=== PATIENT | male | born 1975 | race Caucasian/White ===

== ENCOUNTER 2018-06-14 19:16 | Emergency (ER) | payer OTHER ==
[~2018-06-14] VITALS: Ht 157.5 cm; Wt 102.3 kg
[~2018-06-14 19:16] MED LIST: ASPI81 PO; ATOR40TA28 PO; CARB200T PO; CARB200T6 PO; DIVA-78 PO; LEVE250T55 PO; LEVE750T10 PO; LISI10TA7 PO; METF500T7 PO; MULT-1238 PO; MULT1TAB70 PO; QUET25TA PO; QUET300T2 PO; RISP3 PO; TOPI25 PO
[2018-06-14 19:21] VITALS: BP 155/90
[2018-06-14] MEDS ORDERED: METF-960 PO (19:29)
[2018-06-14] MEDS ORDERED: DIVA500T52 PO (19:29)
[2018-06-14] MEDS ORDERED: QUET300T2 PO (19:29)
[2018-06-14] MEDS ORDERED: OLAN7.5T2 PO (19:29)
[2018-06-14] MEDS ORDERED: CARB200T6 PO (19:29)
[2018-06-14] MEDS ORDERED: ATOR40TA28 PO (19:29)
[2018-06-14] MEDS ORDERED: IBUP-2071 PO (19:29)
[2018-06-14] MEDS ORDERED: CLON.5 PO (19:29)
[2018-06-14] MEDS ORDERED: LEVE500T53 PO (19:29)
[2018-06-14] MEDS ORDERED: OLAN10TA3 PO (19:29)
[2018-06-14] MEDS ORDERED: ASPI81 PO (19:29)
[2018-06-14 19:34] LABS: GLUCOSE,POINT OF CARE 244 MG/DL (70-110)
== END 2018-06-14 21:30 | disposition left against medical advice (07) ==
LOC: EMS 19:18
DX: E11.65 Type 2 diabetes mellitus with hyperglycemia (principal); Z53.21 Procedure and treatment not carried out due to patient leaving prior to being seen by health care provider

== ENCOUNTER 2019-05-23 11:50 | Inpatient (IN) | payer MEDICAID, OTHER ==
[~2019-05-23] VITALS: Ht 167.6 cm; Wt 77.5 kg
[~2019-05-23 11:50] MED LIST changes: +ASPI-728 PO; -ASPI81 PO; -CARB200T PO; +CLON.5 PO; -DIVA-78 PO; +DIVA500T52 PO; +IBUP-2071 PO; -LEVE250T55 PO; +LEVE500T53 PO; -LEVE750T10 PO; -LISI10TA7 PO; +METF-960 PO; -METF500T7 PO; -MULT-1238 PO; -MULT1TAB70 PO; +OLAN10TA3 PO; +OLAN7.5T2 PO; -QUET25TA PO; -RISP3 PO; -TOPI25 PO
[2019-05-23] MEDS ORDERED: CLON1TAB13 PO (12:37)
[2019-05-23] MEDS ORDERED: QUET300T2 PO (13:12)
[2019-05-23] MEDS ORDERED: LISI-661 PO (13:12)
[2019-05-23] MEDS ORDERED: METF-960 PO (13:12)
[2019-05-23] MEDS ORDERED: GLIP2.5ER PO (13:12)
[2019-05-23 13:58] LABS: AMPHET/METH SCREEN,URINE NEGATIVE (NEGATIVE); BARBITURATE SCREEN, URINE NEGATIVE (NEGATIVE); BENZODIAZEPINES SCREEN,URINE NEGATIVE (NEGATIVE); CANNABINOID SCREEN,URINE NEGATIVE (NEGATIVE); COCAINE SCREEN,URINE NEGATIVE (NEGATIVE); METHADONE SCREEN, URINE NEGATIVE (NEGATIVE); OPIATE SCREEN,URINE NEGATIVE (NEGATIVE)
[2019-05-23 14:02] LABS: PHENCYCLIDINE SCREEN,URINE NEGATIVE (NEGATIVE)
[2019-05-23 14:10] LABS: BASOPHILS % (AUTO) 0.4 % (0.0-2.0); EOSINOPHILS % (AUTO) 0.3 % (1.0-6.0); HEMATOCRIT 39.9 % (41-53); HEMOGLOBIN 13.7 g/dL (13.5-17.5); LYMPHOCYTES # (AUTO) 1.3 K/uL (1.0-4.8); LYMPHOCYTES % (AUTO) 15.9 % (22.0-44.0); MEAN CORPUSCULAR HEMOGLOBIN 30.3 pg (26.0-34.0); MEAN CORPUSCULAR HGB CONC 34.3 G/dL (31.0-37.0); MEAN CORPUSCULAR VOLUME 88 fL (80-100); MONOCYTES # (AUTO) 0.5 K/uL (0.1-1.0); MONOCYTES % (AUTO) 5.7 % (2.0-9.0); NEUTROPHILS # (AUTO) 6.5 K/uL (1.8-7.7); NEUTROPHILS % (AUTO) 77.7 % (40.0-70.0); PLATELET COUNT (AUTO) 269 K/uL (150-450); RED BLOOD CELL COUNT(AUTO) 4.51 MIL/uL (4.50-5.90); RED CELL DISTRIBUTION WIDTH 13.7 % (11.5-14.5)
[2019-05-23 14:24] LABS: ANION GAP 12 mmol/L (8-16); CALCIUM, TOTAL 8.9 mg/dL (8.8-10.5); CARBON DIOXIDE 25 mmol/L (22-29); CHLORIDE 93 mmol/L (98-107); CREATININE 0.63 mg/dL (0.60-1.30); GLOMERULAR FILTR. RATE CALC > 60 mL/min (>60); GLUCOSE,RANDOM 132 mg/dL (70-110); POTASSIUM 3.5 mmol/L (3.5-5.1); SODIUM SERUM 130 mmol/L (136-145); UREA NITROGEN, BLOOD 7 mg/dL (7-18)
[2019-05-23 14:30] LABS: ALANINE AMINOTRANSFERASE 38 U/L (12-78); ALKALINE PHOSPHATASE 97 U/L (46-116); ASPARTATE AMINOTRANSFERASE 18 U/L (15-37); BILIRUBIN,TOTAL 0.2 mg/dL (0.1-1.0); TOTAL PROTEIN, SERUM 7.5 g/dL (6.4-8.2)
[2019-05-23 15:05] LABS: CARBAMAZEPINE (TEGRETOL) 10.5 mcg/mL (4.0-12.0)
[2019-05-23] MEDS ORDERED: ZOLPIDEM TARTRATE 10 MG TABLET PO PRN (16:15)
[2019-05-23] MEDS: QUEtiapine FUMARATE 100 MG TABLET PO PRN (16:31)
[2019-05-23] MEDS: LORazepam 2 MG TABLET PO PRN (16:31)
[2019-05-23 16:44] LABS: GLUCOSE,POINT OF CARE 123 MG/DL (70-110)
[2019-05-23 17:45] VITALS: BP 149/80
[2019-05-23] MEDS ORDERED: MAG HYDROX/AL HYDROX/SIMETH ES 30 ML SUSPENSION UDCUP PO PRN (18:30)
[2019-05-23] MEDS ORDERED: ALBUTEROL SULFATE HFA 90 MCG/PUFF 8 GM INHALER IH PRN (18:30)
[2019-05-23] MEDS ORDERED: NICOTINE 14 MG/24 HOUR PATCH TD PRN (18:30)
[2019-05-23] MEDS ORDERED: PETROLATUM,WHITE 28 GM JELLY TP PRN (18:30)
[2019-05-23] MEDS ORDERED: DOCUSATE SODIUM 100 MG CAPSULE PO PRN (18:30)
[2019-05-23] MEDS ORDERED: GuaiFENesin/D-METHORPHAN [SUGAR-FREE] 200-20MG/10 ML SYRUP UDCUP PO PRN (18:30)
[2019-05-23] MEDS ORDERED: LOPERAMIDE HCL 2 MG CAPSULE PO PRN (18:30)
[2019-05-23] MEDS ORDERED: IBUPROFEN 400 MG TABLET PO PRN (18:30)
[2019-05-23] MEDS ORDERED: CloNIDine HCL 0.1 MG TABLET PO PRN (18:30)
[2019-05-23] MEDS ORDERED: ONDANSETRON HCL 4 MG TABLET PO PRN (18:30)
[2019-05-23] MEDS ORDERED: MAGNESIUM HYDROXIDE SUSPENSION 30 ML UDCUP PO PRN (18:30)
[2019-05-23] MEDS ORDERED: ACETAMINOPHEN 325 MG TABLET PO PRN (18:30)
[2019-05-23] MEDS ORDERED: PNEUMOCOCCAL VACCINE POLYVALENT 0.5 ML VIAL [PPSV23] IM ONE (19:00)
[2019-05-23] MEDS ORDERED: INFLUENZA VIRUS VACCINE QVS 2019-20 (3YR+)/PF 60 MCG/0.5 ML SYRINGE IM ONE (19:00)
[2019-05-23] MEDS: ClonazePAM 0.5 MG TABLET PO SCH (19:38)
[2019-05-23] MEDS: OLANZapine 10 MG TABLET PO SCH (20:39)
[2019-05-23] MEDS: LevETIRAcetam 500 MG TABLET PO SCH (20:39)
[2019-05-23] MEDS: QUEtiapine FUMARATE 200 MG TABLET PO SCH (20:40)
[2019-05-23] MEDS: CarBAMazepine 200 MG TABLET PO SCH (20:40)
[2019-05-24] MEDS: GlipiZIDE 5 MG TABLET PO SCH ×2 (06:41→16:37)
[2019-05-24] MEDS: MetFORMIN HCL 500 MG TABLET PO SCH ×2 (06:41→16:28)
[2019-05-24 07:57] LABS: BASOPHILS % (AUTO) 0.5 % (0.0-2.0); EOSINOPHILS % (AUTO) 0.9 % (1.0-6.0); HEMATOCRIT 39.7 % (41-53); HEMOGLOBIN 13.7 g/dL (13.5-17.5); LYMPHOCYTES # (AUTO) 1.4 K/uL (1.0-4.8); MEAN CORPUSCULAR HEMOGLOBIN 30.1 pg (26.0-34.0); MEAN CORPUSCULAR HGB CONC 34.4 G/dL (31.0-37.0); MEAN CORPUSCULAR VOLUME 88 fL (80-100); MONOCYTES # (AUTO) 0.3 K/uL (0.1-1.0); MONOCYTES % (AUTO) 5.2 % (2.0-9.0); NEUTROPHILS # (AUTO) 3.6 K/uL (1.8-7.7); NEUTROPHILS % (AUTO) 67.4 % (40.0-70.0); PLATELET COUNT (AUTO) 250 K/uL (150-450); RED BLOOD CELL COUNT(AUTO) 4.53 MIL/uL (4.50-5.90); RED CELL DISTRIBUTION WIDTH 13.7 % (11.5-14.5)
[2019-05-24 08:27] LABS: ALANINE AMINOTRANSFERASE 39 U/L (12-78); ALKALINE PHOSPHATASE 102 U/L (46-116); ANION GAP 10 mmol/L (8-16); ASPARTATE AMINOTRANSFERASE 18 U/L (15-37); BILIRUBIN,TOTAL 0.2 mg/dL (0.1-1.0); CARBON DIOXIDE 26 mmol/L (22-29); CHLORIDE 90 mmol/L (98-107); CHOL/HDL RATIO 2.8 (4.2-7.3); CHOLESTEROL 135 mg/dL (131-200); CREATININE 0.63 mg/dL (0.60-1.30); FREE T4 (FREE THYROXINE) 1.01 ng/dL (0.76-1.46); GLOMERULAR FILTR. RATE CALC > 60 mL/min (>60); GLUCOSE,RANDOM 160 mg/dL (70-110); HDL CHOLESTEROL 49 mg/dL (40-60); LDL CHOL (CALC.) 62 mg/dL (0-130); POTASSIUM 3.7 mmol/L (3.5-5.1); SODIUM SERUM 126 mmol/L (136-145); THYROID STIMULATING HORMONE 1.61 uIU/mL (0.36-3.74); TOTAL PROTEIN, SERUM 7.6 g/dL (6.4-8.2); TRIGLYCERIDES 121 mg/dL (15-150); UREA NITROGEN, BLOOD 4 mg/dL (7-18)
[2019-05-24] MEDS: ATORVASTATIN CALCIUM 40 MG TABLET PO SCH (08:36)
[2019-05-24] MEDS: LevETIRAcetam 500 MG TABLET PO SCH ×2 (08:36→16:28)
[2019-05-24] MEDS: ClonazePAM 0.5 MG TABLET PO SCH ×2 (08:36→16:28)
[2019-05-24] MEDS: ASPIRIN 81 MG CHEWABLE TABLET PO SCH (08:37)
[2019-05-24] MEDS: CarBAMazepine 200 MG TABLET PO SCH ×2 (08:37→16:28)
[2019-05-24] MEDS: LISINOPRIL 10 MG TABLET PO SCH (08:37)
[2019-05-24 08:59] LABS: CARBAMAZEPINE (TEGRETOL) 10.1 mcg/mL (4.0-12.0)
[2019-05-24 13:37] VITALS: BP 116/74
[2019-05-24 16:26] VITALS: BP 123/76
[2019-05-24] MEDS: SODIUM CHLORIDE 1 GM TABLET PO SCH (17:26)
[2019-05-24] MEDS ORDERED: PETROLATUM,WHITE 28 GM JELLY TP PRN (19:45)
[2019-05-24] MEDS ORDERED: ONDANSETRON HCL 4 MG TABLET PO PRN (19:45)
[2019-05-24] MEDS ORDERED: LOPERAMIDE HCL 2 MG CAPSULE PO PRN (19:45)
[2019-05-24] MEDS ORDERED: DOCUSATE SODIUM 100 MG CAPSULE PO PRN (19:45)
[2019-05-24] MEDS ORDERED: GuaiFENesin/D-METHORPHAN [SUGAR-FREE] 200-20MG/10 ML SYRUP UDCUP PO PRN (19:45)
[2019-05-24] MEDS ORDERED: NICOTINE 14 MG/24 HOUR PATCH TD PRN (19:45)
[2019-05-24] MEDS ORDERED: MAGNESIUM HYDROXIDE SUSPENSION 30 ML UDCUP PO PRN (19:45)
[2019-05-24] MEDS ORDERED: CloNIDine HCL 0.1 MG TABLET PO PRN (19:45)
[2019-05-24] MEDS ORDERED: MAG HYDROX/AL HYDROX/SIMETH ES 30 ML SUSPENSION UDCUP PO PRN (19:45)
[2019-05-24] MEDS ORDERED: IBUPROFEN 400 MG TABLET PO PRN (19:45)
[2019-05-24] MEDS ORDERED: ALBUTEROL SULFATE HFA 90 MCG/PUFF 8 GM INHALER IH PRN (19:45)
[2019-05-24] MEDS: OLANZapine 10 MG TABLET PO SCH (20:11)
[2019-05-24] MEDS: QUEtiapine FUMARATE 200 MG TABLET PO SCH (20:11)
[2019-05-25 06:17] LABS: GLUCOMETER DEV NAME(LOC) 3E.C; GLUCOSE,POINT OF CARE 99 MG/DL (70-110)
[2019-05-25] MEDS: GlipiZIDE 5 MG TABLET PO SCH ×2 (06:36→16:31)
[2019-05-25] MEDS: MetFORMIN HCL 500 MG TABLET PO SCH ×2 (06:37→17:26)
[2019-05-25 09:09] VITALS: BP 146/74
[2019-05-25] MEDS: SODIUM CHLORIDE 1 GM TABLET PO SCH ×3 (09:40→15:55)
[2019-05-25] MEDS: ASPIRIN 81 MG CHEWABLE TABLET PO SCH (09:50)
[2019-05-25] MEDS: LevETIRAcetam 500 MG TABLET PO SCH ×2 (09:50→15:55)
[2019-05-25] MEDS: ClonazePAM 0.5 MG TABLET PO SCH ×2 (09:51→16:32)
[2019-05-25] MEDS: ATORVASTATIN CALCIUM 40 MG TABLET PO SCH (09:51)
[2019-05-25] MEDS: CarBAMazepine 200 MG TABLET PO SCH ×2 (09:51→15:55)
[2019-05-25] MEDS: LISINOPRIL 10 MG TABLET PO SCH (09:52)
[2019-05-25 16:35] VITALS: BP 158/99
[2019-05-25] MEDS: OLANZapine 10 MG TABLET PO SCH (20:10)
[2019-05-25] MEDS: QUEtiapine FUMARATE 200 MG TABLET PO SCH (20:14)
[2019-05-26 05:56] LABS: GLUCOMETER DEV NAME(LOC) 3E.C; GLUCOSE,POINT OF CARE 88 MG/DL (70-110)
[2019-05-26] MEDS: MetFORMIN HCL 500 MG TABLET PO SCH ×2 (06:41→16:28)
[2019-05-26] MEDS: GlipiZIDE 5 MG TABLET PO SCH ×2 (06:41→16:28)
[2019-05-26] MEDS: ClonazePAM 0.5 MG TABLET PO SCH ×2 (08:40→16:29)
[2019-05-26] MEDS: CarBAMazepine 200 MG TABLET PO SCH ×2 (08:40→16:28)
[2019-05-26] MEDS: ATORVASTATIN CALCIUM 40 MG TABLET PO SCH (08:41)
[2019-05-26] MEDS: SODIUM CHLORIDE 1 GM TABLET PO SCH ×3 (08:41→16:29)
[2019-05-26] MEDS: ASPIRIN 81 MG CHEWABLE TABLET PO SCH (08:41)
[2019-05-26] MEDS: LevETIRAcetam 500 MG TABLET PO SCH ×2 (08:41→16:29)
[2019-05-26] MEDS: LISINOPRIL 10 MG TABLET PO SCH (08:41)
[2019-05-26 08:42] LABS: ANION GAP 9 mmol/L (8-16); CARBON DIOXIDE 28 mmol/L (22-29); CHLORIDE 92 mmol/L (98-107); CREATININE 0.57 mg/dL (0.60-1.30); GLOMERULAR FILTR. RATE CALC > 60 mL/min (>60); GLUCOSE,RANDOM 87 mg/dL (70-110); SODIUM SERUM 129 mmol/L (136-145); UREA NITROGEN, BLOOD 6 mg/dL (7-18)
[2019-05-26 09:33] VITALS: BP 114/74
[2019-05-26 16:14] VITALS: BP 114/81
[2019-05-26] MEDS: QUEtiapine FUMARATE 200 MG TABLET PO SCH (20:22)
[2019-05-26] MEDS: OLANZapine 10 MG TABLET PO SCH (20:22)
[2019-05-27] MEDS: GlipiZIDE 5 MG TABLET PO SCH ×2 (06:40→16:14)
[2019-05-27] MEDS: MetFORMIN HCL 500 MG TABLET PO SCH ×2 (06:40→16:14)
[2019-05-27 06:46] LABS: GLUCOMETER DEV NAME(LOC) 3E.C; GLUCOSE,POINT OF CARE 92 MG/DL (70-110)
[2019-05-27 08:16] VITALS: BP 140/81
[2019-05-27] MEDS: SODIUM CHLORIDE 1 GM TABLET PO SCH ×3 (08:24→16:15)
[2019-05-27] MEDS: ASPIRIN 81 MG CHEWABLE TABLET PO SCH (08:24)
[2019-05-27] MEDS: ATORVASTATIN CALCIUM 40 MG TABLET PO SCH (08:24)
[2019-05-27] MEDS: CarBAMazepine 200 MG TABLET PO SCH ×2 (08:24→16:15)
[2019-05-27] MEDS: LISINOPRIL 10 MG TABLET PO SCH (08:24)
[2019-05-27] MEDS: LevETIRAcetam 500 MG TABLET PO SCH ×2 (08:24→16:14)
[2019-05-27] MEDS: ClonazePAM 0.5 MG TABLET PO SCH ×2 (08:24→16:15)
[2019-05-27 16:13] VITALS: BP 132/92
[2019-05-27] MEDS: OLANZapine 10 MG TABLET PO SCH (20:12)
[2019-05-27] MEDS: QUEtiapine FUMARATE 200 MG TABLET PO SCH (20:12)
[2019-05-28 06:00] LABS: GLUCOMETER DEV NAME(LOC) 3E.I 2; GLUCOSE,POINT OF CARE 116 MG/DL (70-110)
[2019-05-28] MEDS: MetFORMIN HCL 500 MG TABLET PO SCH ×2 (06:40→16:34)
[2019-05-28] MEDS: GlipiZIDE 5 MG TABLET PO SCH ×2 (06:40→16:07)
[2019-05-28 08:54] LABS: ANION GAP 12 mmol/L (8-16); CALCIUM, TOTAL 9.1 mg/dL (8.8-10.5); CARBON DIOXIDE 22 mmol/L (22-29); CHLORIDE 87 mmol/L (98-107); CREATININE 0.67 mg/dL (0.60-1.30); GLOMERULAR FILTR. RATE CALC > 60 mL/min (>60); GLUCOSE,RANDOM 143 mg/dL (70-110); POTASSIUM 4.1 mmol/L (3.5-5.1); UREA NITROGEN, BLOOD 9 mg/dL (7-18)
[2019-05-28 08:55] LABS: SODIUM SERUM 121 mmol/L (136-145)
[2019-05-28] MEDS: CarBAMazepine 200 MG TABLET PO SCH ×2 (08:56→16:06)
[2019-05-28] MEDS: ATORVASTATIN CALCIUM 40 MG TABLET PO SCH (08:56)
[2019-05-28] MEDS: SODIUM CHLORIDE 1 GM TABLET PO SCH ×3 (08:56→16:07)
[2019-05-28] MEDS: ASPIRIN 81 MG CHEWABLE TABLET PO SCH (08:57)
[2019-05-28] MEDS: ClonazePAM 0.5 MG TABLET PO SCH ×2 (08:57→16:06)
[2019-05-28] MEDS: LevETIRAcetam 500 MG TABLET PO SCH ×2 (08:58→16:06)
[2019-05-28] MEDS: LISINOPRIL 10 MG TABLET PO SCH (09:14)
[2019-05-28] MEDS ORDERED: SODIUM CHLORIDE 1 GM TABLET PO ONE (09:15)
[2019-05-28 10:00] VITALS: BP 136/94
[2019-05-28] MEDS: LORazepam 2 MG TABLET PO PRN (15:54)
[2019-05-28] MEDS ORDERED: GuaiFENesin/D-METHORPHAN [SUGAR-FREE] 200-20MG/10 ML SYRUP UDCUP PO PRN (16:00)
[2019-05-28] MEDS ORDERED: HydrOXYzine PAMOATE 50 MG CAPSULE PO PRN (16:00)
[2019-05-28] MEDS: THIAMINE HCL 100 MG TABLET PO SCH (16:08)
[2019-05-28 16:32] VITALS: BP 124/90
[2019-05-28] MEDS: QUEtiapine FUMARATE 200 MG TABLET PO SCH (20:47)
[2019-05-29 03:48] VITALS: BP 140/84
[2019-05-29 05:32] LABS: GLUCOMETER DEV NAME(LOC) 3E.I 2; GLUCOSE,POINT OF CARE 99 MG/DL (70-110)
[2019-05-29] MEDS: LORazepam 2 MG TABLET PO PRN (06:17)
[2019-05-29] MEDS: MetFORMIN HCL 500 MG TABLET PO SCH ×2 (06:17→16:11)
[2019-05-29] MEDS: GlipiZIDE 5 MG TABLET PO SCH ×2 (06:17→16:11)
[2019-05-29 08:25] VITALS: BP 127/82
[2019-05-29] MEDS: FOLIC ACID 1 MG TABLET PO SCH (08:50)
[2019-05-29] MEDS: CarBAMazepine 200 MG TABLET PO SCH ×2 (08:50→16:11)
[2019-05-29] MEDS: LevETIRAcetam 500 MG TABLET PO SCH ×2 (08:50→16:12)
[2019-05-29] MEDS: SODIUM CHLORIDE 1 GM TABLET PO SCH ×3 (08:50→16:11)
[2019-05-29] MEDS: LISINOPRIL 10 MG TABLET PO SCH (08:50)
[2019-05-29] MEDS: ClonazePAM 0.5 MG TABLET PO SCH ×2 (08:50→16:11)
[2019-05-29] MEDS: ATORVASTATIN CALCIUM 40 MG TABLET PO SCH (08:50)
[2019-05-29] MEDS: ASPIRIN 81 MG CHEWABLE TABLET PO SCH (08:50)
[2019-05-29] MEDS: THIAMINE HCL 100 MG TABLET PO SCH ×2 (08:52→16:11)
[2019-05-29] MEDS: MULTIVITAMINS WITH MINERALS, THERAPEUTIC TABLET PO SCH (08:52)
[2019-05-29 15:24] LABS: ANION GAP 10 mmol/L (8-16); CALCIUM, TOTAL 8.9 mg/dL (8.8-10.5); CARBON DIOXIDE 28 mmol/L (22-29); CHLORIDE 91 mmol/L (98-107); CREATININE 0.56 mg/dL (0.60-1.30); GLOMERULAR FILTR. RATE CALC > 60 mL/min (>60); GLUCOSE,RANDOM 85 mg/dL (70-110); POTASSIUM 3.9 mmol/L (3.5-5.1); SODIUM SERUM 129 mmol/L (136-145); UREA NITROGEN, BLOOD 6 mg/dL (7-18)
[2019-05-29 16:33] VITALS: BP 145/83
[2019-05-29 18:16] LABS: APPEARANCE,URINE CLEAR (CLEAR); BILIRUBIN,URINE NEGATIVE (NEGATIVE); GLUCOSE, URINE (UA) NEGATIVE (NEGATIVE); KETONES,URINE NEGATIVE (NEGATIVE); LEUKOCYTE ESTERASE ,URINE NEGATIVE (NEGATIVE); NITRATE,URINE NEGATIVE (NEGATIVE); OCCULT BLOOD,URINE NEGATIVE (NEGATIVE); PROTEIN,URINE NEGATIVE (NEGATIVE); UROBILINOGEN,URINE 0.2 mg/dL (<=1.0)
[2019-05-29] MEDS: QUEtiapine FUMARATE 200 MG TABLET PO SCH (20:24)
[2019-05-30 02:43] VITALS: BP 127/75
[2019-05-30 05:46] LABS: GLUCOMETER DEV NAME(LOC) 3E.I 2; GLUCOSE,POINT OF CARE 91 MG/DL (70-110)
[2019-05-30] MEDS: LORazepam 2 MG TABLET PO PRN (06:08)
[2019-05-30] MEDS: GlipiZIDE 5 MG TABLET PO SCH ×2 (06:34→16:23)
[2019-05-30] MEDS: MetFORMIN HCL 500 MG TABLET PO SCH ×2 (06:35→16:23)
[2019-05-30] MEDS: QUEtiapine FUMARATE 100 MG TABLET PO PRN (07:40)
[2019-05-30 07:56] LABS: ANION GAP 9 mmol/L (8-16); CALCIUM, TOTAL 9.3 mg/dL (8.8-10.5); CARBON DIOXIDE 29 mmol/L (22-29); CHLORIDE 91 mmol/L (98-107); CREATININE 0.51 mg/dL (0.60-1.30); GLOMERULAR FILTR. RATE CALC > 60 mL/min (>60); GLUCOSE,RANDOM 101 mg/dL (70-110); SODIUM SERUM 129 mmol/L (136-145); UREA NITROGEN, BLOOD 7 mg/dL (7-18)
[2019-05-30 08:00] VITALS: BP 156/86
[2019-05-30] MEDS: FOLIC ACID 1 MG TABLET PO SCH (09:01)
[2019-05-30] MEDS: ClonazePAM 0.5 MG TABLET PO SCH ×2 (09:01→16:23)
[2019-05-30] MEDS: MULTIVITAMINS WITH MINERALS, THERAPEUTIC TABLET PO SCH (09:01)
[2019-05-30] MEDS: LevETIRAcetam 500 MG TABLET PO SCH ×2 (09:01→16:23)
[2019-05-30] MEDS: LISINOPRIL 10 MG TABLET PO SCH (09:02)
[2019-05-30] MEDS: THIAMINE HCL 100 MG TABLET PO SCH ×2 (09:02→16:23)
[2019-05-30] MEDS: SODIUM CHLORIDE 1 GM TABLET PO SCH ×3 (09:02→16:22)
[2019-05-30] MEDS: ATORVASTATIN CALCIUM 40 MG TABLET PO SCH (09:02)
[2019-05-30] MEDS: ASPIRIN 81 MG CHEWABLE TABLET PO SCH (09:03)
[2019-05-30] MEDS: MetroNIDAZOLE 500 MG TABLET PO SCH ×2 (14:27→16:23)
[2019-05-30 17:00] VITALS: BP 135/87
[2019-05-30] MEDS: QUEtiapine FUMARATE 200 MG TABLET PO SCH (20:18)
[2019-05-31 06:25] LABS: GLUCOMETER DEV NAME(LOC) 3E.C; GLUCOSE,POINT OF CARE 89 MG/DL (70-110)
[2019-05-31] MEDS: GlipiZIDE 5 MG TABLET PO SCH ×2 (06:50→16:51)
[2019-05-31] MEDS: MetFORMIN HCL 500 MG TABLET PO SCH ×2 (06:50→17:08)
[2019-05-31 07:44] LABS: ANION GAP 9 mmol/L (8-16); CALCIUM, TOTAL 9.7 mg/dL (8.8-10.5); CARBON DIOXIDE 28 mmol/L (22-29); CHLORIDE 94 mmol/L (98-107); CREATININE 0.48 mg/dL (0.60-1.30); GLOMERULAR FILTR. RATE CALC > 60 mL/min (>60); GLUCOSE,RANDOM 102 mg/dL (70-110); POTASSIUM 4.2 mmol/L (3.5-5.1); SODIUM SERUM 131 mmol/L (136-145); UREA NITROGEN, BLOOD 7 mg/dL (7-18)
[2019-05-31] MEDS: ClonazePAM 0.5 MG TABLET PO SCH ×2 (08:19→16:51)
[2019-05-31] MEDS: ATORVASTATIN CALCIUM 40 MG TABLET PO SCH (08:19)
[2019-05-31] MEDS: LevETIRAcetam 500 MG TABLET PO SCH ×2 (08:19→16:51)
[2019-05-31] MEDS: THIAMINE HCL 100 MG TABLET PO SCH ×2 (08:19→16:51)
[2019-05-31] MEDS: MULTIVITAMINS WITH MINERALS, THERAPEUTIC TABLET PO SCH (08:19)
[2019-05-31] MEDS: FOLIC ACID 1 MG TABLET PO SCH (08:19)
[2019-05-31] MEDS: ASPIRIN 81 MG CHEWABLE TABLET PO SCH (08:20)
[2019-05-31] MEDS: LISINOPRIL 10 MG TABLET PO SCH (08:20)
[2019-05-31] MEDS: MetroNIDAZOLE 500 MG TABLET PO SCH ×3 (08:22→16:51)
[2019-05-31] MEDS: SODIUM CHLORIDE 1 GM TABLET PO SCH ×3 (08:22→16:51)
[2019-05-31 10:15] VITALS: BP 123/66
[2019-05-31 16:10] VITALS: BP 127/77
[2019-05-31] MEDS: QUEtiapine FUMARATE 200 MG TABLET PO SCH (20:21)
[2019-06-01 06:36] LABS: GLUCOMETER DEV NAME(LOC) 3E.C; GLUCOSE,POINT OF CARE 82 MG/DL (70-110)
[2019-06-01] MEDS: MetFORMIN HCL 500 MG TABLET PO SCH ×2 (06:49→17:23)
[2019-06-01] MEDS: GlipiZIDE 5 MG TABLET PO SCH ×2 (06:49→16:08)
[2019-06-01 08:26] LABS: ANION GAP 8 mmol/L (8-16); CALCIUM, TOTAL 9.7 mg/dL (8.8-10.5); CARBON DIOXIDE 28 mmol/L (22-29); CHLORIDE 90 mmol/L (98-107); GLOMERULAR FILTR. RATE CALC > 60 mL/min (>60); GLUCOSE,RANDOM 170 mg/dL (70-110); POTASSIUM 4.3 mmol/L (3.5-5.1); SODIUM SERUM 126 mmol/L (136-145); UREA NITROGEN, BLOOD 7 mg/dL (7-18)
[2019-06-01] MEDS: ATORVASTATIN CALCIUM 40 MG TABLET PO SCH (09:15)
[2019-06-01] MEDS: FOLIC ACID 1 MG TABLET PO SCH (09:17)
[2019-06-01] MEDS: ASPIRIN 81 MG CHEWABLE TABLET PO SCH (09:17)
[2019-06-01] MEDS: LevETIRAcetam 500 MG TABLET PO SCH ×2 (09:17→16:08)
[2019-06-01] MEDS: MetroNIDAZOLE 500 MG TABLET PO SCH ×3 (09:17→16:09)
[2019-06-01] MEDS: ClonazePAM 0.5 MG TABLET PO SCH ×2 (09:17→16:08)
[2019-06-01] MEDS: LISINOPRIL 10 MG TABLET PO SCH (09:18)
[2019-06-01] MEDS: SODIUM CHLORIDE 1 GM TABLET PO SCH ×3 (09:18→16:08)
[2019-06-01] MEDS: THIAMINE HCL 100 MG TABLET PO SCH ×2 (09:18→16:08)
[2019-06-01] MEDS: MULTIVITAMINS WITH MINERALS, THERAPEUTIC TABLET PO SCH (09:18)
[2019-06-01 11:09] VITALS: BP 134/90
[2019-06-01 16:26] VITALS: BP 149/90
[2019-06-01] MEDS: ACETAMINOPHEN 325 MG TABLET PO PRN (16:31)
[2019-06-01] MEDS: QUEtiapine FUMARATE 200 MG TABLET PO SCH (20:22)
[2019-06-02 06:57] LABS: GLUCOMETER DEV NAME(LOC) 3E.C; GLUCOSE,POINT OF CARE 95 MG/DL (70-110)
[2019-06-02] MEDS: GlipiZIDE 5 MG TABLET PO SCH ×2 (07:00→17:44)
[2019-06-02] MEDS: MetFORMIN HCL 500 MG TABLET PO SCH ×2 (07:00→17:46)
[2019-06-02 07:30] LABS: ANION GAP 8 mmol/L (8-16); CALCIUM, TOTAL 9.4 mg/dL (8.8-10.5); CARBON DIOXIDE 30 mmol/L (22-29); CHLORIDE 90 mmol/L (98-107); CREATININE 0.56 mg/dL (0.60-1.30); GLOMERULAR FILTR. RATE CALC > 60 mL/min (>60); GLUCOSE,RANDOM 108 mg/dL (70-110); POTASSIUM 3.5 mmol/L (3.5-5.1); SODIUM SERUM 128 mmol/L (136-145); UREA NITROGEN, BLOOD 7 mg/dL (7-18)
[2019-06-02] MEDS: SODIUM CHLORIDE 1 GM TABLET PO SCH ×3 (08:35→16:15)
[2019-06-02] MEDS: MetroNIDAZOLE 500 MG TABLET PO SCH ×3 (08:36→16:13)
[2019-06-02] MEDS: LISINOPRIL 10 MG TABLET PO SCH (08:38)
[2019-06-02] MEDS: ClonazePAM 0.5 MG TABLET PO SCH ×2 (08:38→16:14)
[2019-06-02] MEDS: LevETIRAcetam 500 MG TABLET PO SCH ×2 (08:38→16:15)
[2019-06-02] MEDS: THIAMINE HCL 100 MG TABLET PO SCH ×2 (08:38→16:15)
[2019-06-02] MEDS: FOLIC ACID 1 MG TABLET PO SCH (08:39)
[2019-06-02] MEDS: ASPIRIN 81 MG CHEWABLE TABLET PO SCH (08:39)
[2019-06-02] MEDS: ATORVASTATIN CALCIUM 40 MG TABLET PO SCH (08:39)
[2019-06-02] MEDS: MULTIVITAMINS WITH MINERALS, THERAPEUTIC TABLET PO SCH (09:02)
[2019-06-02 10:11] VITALS: BP 136/77
[2019-06-02 17:58] VITALS: BP 152/82
[2019-06-02] MEDS: QUEtiapine FUMARATE 200 MG TABLET PO SCH (20:14)
[2019-06-03 06:18] LABS: GLUCOMETER DEV NAME(LOC) 3E.C; GLUCOSE,POINT OF CARE 81 MG/DL (70-110)
[2019-06-03] MEDS: MetFORMIN HCL 500 MG TABLET PO SCH ×2 (06:57→17:28)
[2019-06-03] MEDS: GlipiZIDE 5 MG TABLET PO SCH ×2 (06:57→16:36)
[2019-06-03 07:25] LABS: ANION GAP 6 mmol/L (8-16); CALCIUM, TOTAL 9.1 mg/dL (8.8-10.5); CARBON DIOXIDE 30 mmol/L (22-29); CHLORIDE 89 mmol/L (98-107); CREATININE 0.61 mg/dL (0.60-1.30); GLOMERULAR FILTR. RATE CALC > 60 mL/min (>60); GLUCOSE,RANDOM 102 mg/dL (70-110); POTASSIUM 3.9 mmol/L (3.5-5.1); SODIUM SERUM 125 mmol/L (136-145); UREA NITROGEN, BLOOD 7 mg/dL (7-18)
[2019-06-03] MEDS: ClonazePAM 0.5 MG TABLET PO SCH ×2 (09:49→16:06)
[2019-06-03] MEDS: ATORVASTATIN CALCIUM 40 MG TABLET PO SCH (09:49)
[2019-06-03] MEDS: ASPIRIN 81 MG CHEWABLE TABLET PO SCH (09:49)
[2019-06-03] MEDS: FOLIC ACID 1 MG TABLET PO SCH (09:50)
[2019-06-03] MEDS: LISINOPRIL 10 MG TABLET PO SCH (09:50)
[2019-06-03] MEDS: THIAMINE HCL 100 MG TABLET PO SCH ×2 (09:50→16:05)
[2019-06-03] MEDS: MULTIVITAMINS WITH MINERALS, THERAPEUTIC TABLET PO SCH (09:50)
[2019-06-03] MEDS: LevETIRAcetam 500 MG TABLET PO SCH ×2 (09:50→16:05)
[2019-06-03] MEDS: MetroNIDAZOLE 500 MG TABLET PO SCH ×3 (09:51→17:28)
[2019-06-03] MEDS: SODIUM CHLORIDE 1 GM TABLET PO SCH ×4 (09:51→20:27)
[2019-06-03 09:58] VITALS: BP 107/72
[2019-06-03 16:37] VITALS: BP 117/81
[2019-06-03] MEDS: QUEtiapine FUMARATE 200 MG TABLET PO SCH (20:27)
[2019-06-04] MEDS: MetFORMIN HCL 500 MG TABLET PO SCH ×2 (06:46→16:14)
[2019-06-04] MEDS: GlipiZIDE 5 MG TABLET PO SCH ×2 (06:46→16:15)
[2019-06-04 06:54] LABS: GLUCOMETER DEV NAME(LOC) 3E.C; GLUCOSE,POINT OF CARE 102 MG/DL (70-110)
[2019-06-04 07:12] LABS: ANION GAP 7 mmol/L (8-16); CALCIUM, TOTAL 9.2 mg/dL (8.8-10.5); CARBON DIOXIDE 29 mmol/L (22-29); CHLORIDE 95 mmol/L (98-107); CREATININE 0.62 mg/dL (0.60-1.30); GLOMERULAR FILTR. RATE CALC > 60 mL/min (>60); GLUCOSE,RANDOM 98 mg/dL (70-110); POTASSIUM 3.7 mmol/L (3.5-5.1); SODIUM SERUM 131 mmol/L (136-145); UREA NITROGEN, BLOOD 8 mg/dL (7-18)
[2019-06-04] MEDS: SODIUM CHLORIDE 1 GM TABLET PO SCH ×4 (08:05→20:25)
[2019-06-04] MEDS: ClonazePAM 0.5 MG TABLET PO SCH ×2 (08:06→16:14)
[2019-06-04] MEDS: MetroNIDAZOLE 500 MG TABLET PO SCH ×2 (08:06→12:31)
[2019-06-04] MEDS: LevETIRAcetam 500 MG TABLET PO SCH ×2 (08:06→16:14)
[2019-06-04] MEDS: LISINOPRIL 10 MG TABLET PO SCH (08:06)
[2019-06-04] MEDS: ASPIRIN 81 MG CHEWABLE TABLET PO SCH (08:06)
[2019-06-04] MEDS: MULTIVITAMINS WITH MINERALS, THERAPEUTIC TABLET PO SCH (08:06)
[2019-06-04] MEDS: CloNIDine HCL 0.1 MG TABLET PO SCH ×2 (08:06→16:17)
[2019-06-04] MEDS: ATORVASTATIN CALCIUM 40 MG TABLET PO SCH (08:07)
[2019-06-04] MEDS: THIAMINE HCL 100 MG TABLET PO SCH ×2 (08:07→16:14)
[2019-06-04] MEDS: FOLIC ACID 1 MG TABLET PO SCH (08:07)
[2019-06-04 09:07] VITALS: BP 153/74
[2019-06-04 16:03] VITALS: BP 116/67
[2019-06-04] MEDS: QUEtiapine FUMARATE 200 MG TABLET PO SCH (20:25)
[2019-06-05 06:42] LABS: GLUCOMETER DEV NAME(LOC) 3E.C; GLUCOSE,POINT OF CARE 85 MG/DL (70-110)
[2019-06-05] MEDS: MetFORMIN HCL 500 MG TABLET PO SCH ×2 (07:02→17:39)
[2019-06-05] MEDS: GlipiZIDE 5 MG TABLET PO SCH ×2 (07:02→20:38)
[2019-06-05] MEDS: ClonazePAM 0.5 MG TABLET PO SCH (08:57)
[2019-06-05] MEDS: LevETIRAcetam 500 MG TABLET PO SCH ×2 (08:57→17:39)
[2019-06-05] MEDS: THIAMINE HCL 100 MG TABLET PO SCH ×2 (08:57→17:40)
[2019-06-05] MEDS: LISINOPRIL 10 MG TABLET PO SCH (08:57)
[2019-06-05] MEDS: ASPIRIN 81 MG CHEWABLE TABLET PO SCH (08:57)
[2019-06-05] MEDS: CloNIDine HCL 0.1 MG TABLET PO SCH ×2 (08:57→17:38)
[2019-06-05] MEDS: FOLIC ACID 1 MG TABLET PO SCH (08:57)
[2019-06-05] MEDS: MULTIVITAMINS WITH MINERALS, THERAPEUTIC TABLET PO SCH (08:57)
[2019-06-05] MEDS: ATORVASTATIN CALCIUM 40 MG TABLET PO SCH (08:58)
[2019-06-05] MEDS: SODIUM CHLORIDE 1 GM TABLET PO SCH ×4 (08:58→20:50)
[2019-06-05 09:24] VITALS: BP 121/66
[2019-06-05 18:44] VITALS: BP 128/77
[2019-06-05] MEDS: QUEtiapine FUMARATE 200 MG TABLET PO SCH (20:51)
[2019-06-06] MEDS: GlipiZIDE 5 MG TABLET PO SCH (07:22)
[2019-06-06] MEDS: MetFORMIN HCL 500 MG TABLET PO SCH ×2 (07:23→17:30)
[2019-06-06 07:32] LABS: GLUCOMETER DEV NAME(LOC) 3E.C; GLUCOSE,POINT OF CARE 92 MG/DL (70-110)
[2019-06-06 07:32] LABS: GLUCOMETER DEV NAME(LOC) 3E.C; GLUCOSE,POINT OF CARE 67 MG/DL (70-110)
[2019-06-06 08:37] VITALS: BP 141/82
[2019-06-06] MEDS: MULTIVITAMINS WITH MINERALS, THERAPEUTIC TABLET PO SCH (08:51)
[2019-06-06] MEDS: LevETIRAcetam 500 MG TABLET PO SCH ×2 (08:51→17:29)
[2019-06-06] MEDS: ASPIRIN 81 MG CHEWABLE TABLET PO SCH (08:52)
[2019-06-06] MEDS: THIAMINE HCL 100 MG TABLET PO SCH ×2 (08:52→17:30)
[2019-06-06] MEDS: LISINOPRIL 10 MG TABLET PO SCH (08:52)
[2019-06-06] MEDS: ClonazePAM 0.5 MG TABLET PO SCH ×2 (08:52→17:30)
[2019-06-06] MEDS: FOLIC ACID 1 MG TABLET PO SCH (08:52)
[2019-06-06] MEDS: CloNIDine HCL 0.1 MG TABLET PO SCH ×2 (08:52→17:31)
[2019-06-06] MEDS: ATORVASTATIN CALCIUM 40 MG TABLET PO SCH (08:52)
[2019-06-06] MEDS: SODIUM CHLORIDE 1 GM TABLET PO SCH ×4 (08:53→20:49)
[2019-06-06 16:58] VITALS: BP 113/77
[2019-06-06] MEDS ORDERED: CLON.5 PO (17:20)
[2019-06-06] MEDS ORDERED: QUET200T29 PO (17:20)
[2019-06-06] MEDS ORDERED: LEVE500T53 PO (17:20)
[2019-06-06] MEDS: QUEtiapine FUMARATE 200 MG TABLET PO SCH (20:49)
[2019-06-07 06:48] LABS: GLUCOMETER DEV NAME(LOC) 3E.C; GLUCOSE,POINT OF CARE 125 MG/DL (70-110)
[2019-06-07] MEDS: MetFORMIN HCL 500 MG TABLET PO SCH ×2 (07:02→16:50)
[2019-06-07 07:04] VITALS: BP 118/68
[2019-06-07 07:34] LABS: ANION GAP 11 mmol/L (8-16); CALCIUM, TOTAL 9.5 mg/dL (8.8-10.5); CARBON DIOXIDE 27 mmol/L (22-29); CHLORIDE 93 mmol/L (98-107); CREATININE 0.58 mg/dL (0.60-1.30); GLOMERULAR FILTR. RATE CALC > 60 mL/min (>60); GLUCOSE,RANDOM 122 mg/dL (70-110); POTASSIUM 3.7 mmol/L (3.5-5.1); SODIUM SERUM 131 mmol/L (136-145); UREA NITROGEN, BLOOD 6 mg/dL (7-18)
[2019-06-07] MEDS: ClonazePAM 0.5 MG TABLET PO SCH ×2 (09:01→16:49)
[2019-06-07] MEDS: LISINOPRIL 10 MG TABLET PO SCH (09:01)
[2019-06-07] MEDS: SODIUM CHLORIDE 1 GM TABLET PO SCH ×4 (09:01→20:40)
[2019-06-07] MEDS: THIAMINE HCL 100 MG TABLET PO SCH (09:01)
[2019-06-07] MEDS: LevETIRAcetam 500 MG TABLET PO SCH ×2 (09:01→16:49)
[2019-06-07] MEDS: ASPIRIN 81 MG CHEWABLE TABLET PO SCH (09:01)
[2019-06-07] MEDS: FOLIC ACID 1 MG TABLET PO SCH (09:01)
[2019-06-07] MEDS: ATORVASTATIN CALCIUM 40 MG TABLET PO SCH (09:01)
[2019-06-07] MEDS: MULTIVITAMINS WITH MINERALS, THERAPEUTIC TABLET PO SCH (09:01)
[2019-06-07] MEDS: CloNIDine HCL 0.1 MG TABLET PO SCH ×2 (09:08→16:50)
[2019-06-07 10:57] VITALS: BP 106/61
[2019-06-07 16:01] VITALS: BP 119/72
[2019-06-07] MEDS: QUEtiapine FUMARATE 200 MG TABLET PO SCH (20:40)
[2019-06-08 06:35] VITALS: BP 125/70
[2019-06-08 06:50] LABS: GLUCOMETER DEV NAME(LOC) 3E.C; GLUCOSE,POINT OF CARE 97 MG/DL (70-110)
[2019-06-08] MEDS: MetFORMIN HCL 500 MG TABLET PO SCH ×2 (06:50→16:48)
[2019-06-08] MEDS: LISINOPRIL 10 MG TABLET PO SCH (08:34)
[2019-06-08] MEDS: SODIUM CHLORIDE 1 GM TABLET PO SCH ×4 (08:34→21:09)
[2019-06-08] MEDS: ClonazePAM 0.5 MG TABLET PO SCH ×2 (08:34→16:48)
[2019-06-08] MEDS: LevETIRAcetam 500 MG TABLET PO SCH ×2 (08:34→16:48)
[2019-06-08] MEDS: ATORVASTATIN CALCIUM 40 MG TABLET PO SCH (08:34)
[2019-06-08] MEDS: MULTIVITAMINS WITH MINERALS, THERAPEUTIC TABLET PO SCH (08:34)
[2019-06-08] MEDS: ASPIRIN 81 MG CHEWABLE TABLET PO SCH (08:35)
[2019-06-08] MEDS: CloNIDine HCL 0.1 MG TABLET PO SCH ×2 (08:35→16:48)
[2019-06-08 08:54] VITALS: BP 127/73
[2019-06-08 16:28] VITALS: BP 129/78
[2019-06-08] MEDS: QUEtiapine FUMARATE 200 MG TABLET PO SCH (21:09)
[2019-06-09] MEDS: MetFORMIN HCL 500 MG TABLET PO SCH ×2 (06:42→17:26)
[2019-06-09 06:48] LABS: GLUCOMETER DEV NAME(LOC) 3E.C; GLUCOSE,POINT OF CARE 94 MG/DL (70-110)
[2019-06-09 08:09] VITALS: BP 124/78
[2019-06-09] MEDS: ASPIRIN 81 MG CHEWABLE TABLET PO SCH (08:41)
[2019-06-09] MEDS: ClonazePAM 0.5 MG TABLET PO SCH ×2 (08:41→17:27)
[2019-06-09] MEDS: LevETIRAcetam 500 MG TABLET PO SCH ×2 (08:41→17:26)
[2019-06-09] MEDS: ATORVASTATIN CALCIUM 40 MG TABLET PO SCH (08:41)
[2019-06-09] MEDS: LISINOPRIL 10 MG TABLET PO SCH (08:41)
[2019-06-09] MEDS: CloNIDine HCL 0.1 MG TABLET PO SCH ×2 (08:41→17:26)
[2019-06-09] MEDS: MULTIVITAMINS WITH MINERALS, THERAPEUTIC TABLET PO SCH (08:42)
[2019-06-09] MEDS: SODIUM CHLORIDE 1 GM TABLET PO SCH ×4 (08:47→20:11)
[2019-06-09 09:19] LABS: ANION GAP 7 mmol/L (8-16); CALCIUM, TOTAL 9.7 mg/dL (8.8-10.5); CARBON DIOXIDE 30 mmol/L (22-29); CHLORIDE 95 mmol/L (98-107); CREATININE 0.65 mg/dL (0.60-1.30); GLOMERULAR FILTR. RATE CALC > 60 mL/min (>60); GLUCOSE,RANDOM 112 mg/dL (70-110); SODIUM SERUM 132 mmol/L (136-145); UREA NITROGEN, BLOOD 5 mg/dL (7-18)
[2019-06-09 16:07] VITALS: BP 114/73
[2019-06-09] MEDS: QUEtiapine FUMARATE 200 MG TABLET PO SCH (20:11)
[2019-06-10 06:51] LABS: GLUCOMETER DEV NAME(LOC) 3E.C; GLUCOSE,POINT OF CARE 96 MG/DL (70-110)
[2019-06-10] MEDS: MetFORMIN HCL 500 MG TABLET PO SCH ×2 (07:06→16:17)
[2019-06-10 08:36] VITALS: BP 100/55
[2019-06-10] MEDS: LevETIRAcetam 500 MG TABLET PO SCH ×2 (08:48→16:18)
[2019-06-10] MEDS: CloNIDine HCL 0.1 MG TABLET PO SCH ×2 (08:49→16:18)
[2019-06-10] MEDS: LISINOPRIL 10 MG TABLET PO SCH (08:49)
[2019-06-10] MEDS: ClonazePAM 0.5 MG TABLET PO SCH ×2 (08:49→16:17)
[2019-06-10] MEDS: ASPIRIN 81 MG CHEWABLE TABLET PO SCH (08:49)
[2019-06-10] MEDS: ATORVASTATIN CALCIUM 40 MG TABLET PO SCH (08:49)
[2019-06-10] MEDS: SODIUM CHLORIDE 1 GM TABLET PO SCH ×4 (08:51→20:05)
[2019-06-10] MEDS: MULTIVITAMINS WITH MINERALS, THERAPEUTIC TABLET PO SCH (08:51)
[2019-06-10 16:13] VITALS: BP 110/74
[2019-06-10] MEDS: QUEtiapine FUMARATE 200 MG TABLET PO SCH (20:05)
[2019-06-11] MEDS: MetFORMIN HCL 500 MG TABLET PO SCH ×2 (06:46→17:28)
[2019-06-11 06:47] LABS: GLUCOMETER DEV NAME(LOC) 3E.C; GLUCOSE,POINT OF CARE 79 MG/DL (70-110)
[2019-06-11] MEDS: LevETIRAcetam 500 MG TABLET PO SCH ×2 (09:12→16:12)
[2019-06-11] MEDS: MULTIVITAMINS WITH MINERALS, THERAPEUTIC TABLET PO SCH (09:12)
[2019-06-11] MEDS: ATORVASTATIN CALCIUM 40 MG TABLET PO SCH (09:12)
[2019-06-11] MEDS: ClonazePAM 0.5 MG TABLET PO SCH ×2 (09:12→16:12)
[2019-06-11] MEDS: CloNIDine HCL 0.1 MG TABLET PO SCH ×2 (09:12→16:13)
[2019-06-11] MEDS: LISINOPRIL 10 MG TABLET PO SCH (09:12)
[2019-06-11] MEDS: ASPIRIN 81 MG CHEWABLE TABLET PO SCH (09:12)
[2019-06-11] MEDS: SODIUM CHLORIDE 1 GM TABLET PO SCH ×4 (09:13→21:48)
[2019-06-11 10:04] VITALS: BP 128/72
[2019-06-11] MEDS ORDERED: PALIPERIDONE PALMITATE 234 MG/1.5 ML SYRINGE IM ONE (11:15)
[2019-06-11 16:21] VITALS: BP 127/63
[2019-06-11] MEDS: DIVALPROEX SODIUM 500 MG ER TABLET PO SCH (21:48)
[2019-06-11] MEDS: PALIPERIDONE 3 MG ER TABLET PO SCH (21:48)
[2019-06-12 06:50] LABS: GLUCOMETER DEV NAME(LOC) 3E.C; GLUCOSE,POINT OF CARE 77 MG/DL (70-110)
[2019-06-12] MEDS: MetFORMIN HCL 500 MG TABLET PO SCH ×2 (06:56→17:34)
[2019-06-12] MEDS: MULTIVITAMINS WITH MINERALS, THERAPEUTIC TABLET PO SCH (08:27)
[2019-06-12] MEDS: CloNIDine HCL 0.1 MG TABLET PO SCH ×2 (08:27→16:55)
[2019-06-12] MEDS: LISINOPRIL 10 MG TABLET PO SCH (08:27)
[2019-06-12] MEDS: ClonazePAM 0.5 MG TABLET PO SCH ×2 (08:27→16:54)
[2019-06-12] MEDS: LevETIRAcetam 500 MG TABLET PO SCH ×2 (08:27→16:54)
[2019-06-12] MEDS: ASPIRIN 81 MG CHEWABLE TABLET PO SCH (08:27)
[2019-06-12] MEDS: ATORVASTATIN CALCIUM 40 MG TABLET PO SCH (08:27)
[2019-06-12] MEDS: SODIUM CHLORIDE 1 GM TABLET PO SCH ×4 (08:28→20:37)
[2019-06-12 13:01] VITALS: BP 102/60
[2019-06-12 16:37] VITALS: BP 110/74
[2019-06-12] MEDS: PALIPERIDONE 3 MG ER TABLET PO SCH (20:36)
[2019-06-12] MEDS: DIVALPROEX SODIUM 500 MG ER TABLET PO SCH (20:36)
[2019-06-13 06:58] LABS: GLUCOMETER DEV NAME(LOC) 3E.C; GLUCOSE,POINT OF CARE 95 MG/DL (70-110)
[2019-06-13] MEDS: MetFORMIN HCL 500 MG TABLET PO SCH ×2 (07:05→17:10)
[2019-06-13] MEDS: ClonazePAM 0.5 MG TABLET PO SCH (09:03)
[2019-06-13] MEDS: LevETIRAcetam 500 MG TABLET PO SCH ×2 (09:03→17:10)
[2019-06-13] MEDS: CloNIDine HCL 0.1 MG TABLET PO SCH ×2 (09:03→17:10)
[2019-06-13] MEDS: ATORVASTATIN CALCIUM 40 MG TABLET PO SCH (09:04)
[2019-06-13] MEDS: ASPIRIN 81 MG CHEWABLE TABLET PO SCH (09:04)
[2019-06-13] MEDS: SODIUM CHLORIDE 1 GM TABLET PO SCH ×4 (09:04→20:32)
[2019-06-13] MEDS: MULTIVITAMINS WITH MINERALS, THERAPEUTIC TABLET PO SCH (09:04)
[2019-06-13] MEDS: LISINOPRIL 10 MG TABLET PO SCH (09:04)
[2019-06-13 10:23] VITALS: BP 144/88
[2019-06-13 16:04] VITALS: BP 119/78
[2019-06-13] MEDS: DIVALPROEX SODIUM 500 MG ER TABLET PO SCH (20:32)
[2019-06-13] MEDS: PALIPERIDONE 3 MG ER TABLET PO SCH (20:32)
[2019-06-14] MEDS: MetFORMIN HCL 500 MG TABLET PO SCH ×2 (06:48→17:21)
[2019-06-14 06:56] LABS: GLUCOMETER DEV NAME(LOC) 3E.C; GLUCOSE,POINT OF CARE 85 MG/DL (70-110)
[2019-06-14 08:28] VITALS: BP 143/81
[2019-06-14] MEDS: ATORVASTATIN CALCIUM 40 MG TABLET PO SCH (08:52)
[2019-06-14] MEDS: CloNIDine HCL 0.1 MG TABLET PO SCH ×2 (08:52→17:21)
[2019-06-14] MEDS: ClonazePAM 0.5 MG TABLET PO SCH (08:52)
[2019-06-14] MEDS: MULTIVITAMINS WITH MINERALS, THERAPEUTIC TABLET PO SCH (08:52)
[2019-06-14] MEDS: ASPIRIN 81 MG CHEWABLE TABLET PO SCH (08:53)
[2019-06-14] MEDS: LevETIRAcetam 500 MG TABLET PO SCH ×2 (08:53→17:21)
[2019-06-14] MEDS: LISINOPRIL 10 MG TABLET PO SCH (08:53)
[2019-06-14] MEDS: SODIUM CHLORIDE 1 GM TABLET PO SCH ×4 (08:53→20:08)
[2019-06-14] MEDS: ACETAMINOPHEN 325 MG TABLET PO PRN (12:56)
[2019-06-14 17:06] VITALS: BP 127/91
[2019-06-14] MEDS: DIVALPROEX SODIUM 500 MG ER TABLET PO SCH (20:08)
[2019-06-15 06:49] LABS: GLUCOMETER DEV NAME(LOC) 3E.C; GLUCOSE,POINT OF CARE 79 MG/DL (70-110)
[2019-06-15] MEDS: MetFORMIN HCL 500 MG TABLET PO SCH ×2 (06:49→17:18)
[2019-06-15 07:34] LABS: ANION GAP 8 mmol/L (8-16); CALCIUM, TOTAL 9.6 mg/dL (8.8-10.5); CARBON DIOXIDE 30 mmol/L (22-29); CHLORIDE 96 mmol/L (98-107); CREATININE 0.61 mg/dL (0.60-1.30); GLOMERULAR FILTR. RATE CALC > 60 mL/min (>60); GLUCOSE,RANDOM 89 mg/dL (70-110); POTASSIUM 4.3 mmol/L (3.5-5.1); SODIUM SERUM 134 mmol/L (136-145); UREA NITROGEN, BLOOD 5 mg/dL (7-18)
[2019-06-15] MEDS: MULTIVITAMINS WITH MINERALS, THERAPEUTIC TABLET PO SCH (08:58)
[2019-06-15] MEDS: LISINOPRIL 10 MG TABLET PO SCH (08:58)
[2019-06-15] MEDS: LevETIRAcetam 500 MG TABLET PO SCH ×2 (08:58→16:20)
[2019-06-15] MEDS: ClonazePAM 0.5 MG TABLET PO SCH (08:58)
[2019-06-15] MEDS: ASPIRIN 81 MG CHEWABLE TABLET PO SCH (08:58)
[2019-06-15] MEDS: ATORVASTATIN CALCIUM 40 MG TABLET PO SCH (08:58)
[2019-06-15] MEDS: SODIUM CHLORIDE 1 GM TABLET PO SCH ×4 (08:58→20:11)
[2019-06-15] MEDS: CloNIDine HCL 0.1 MG TABLET PO SCH ×2 (08:59→16:20)
[2019-06-15] MEDS ORDERED: PALIPERIDONE PALMITATE 156 MG/ML SYRINGE IM ONE (09:00)
[2019-06-15 09:03] VITALS: BP 116/67
[2019-06-15 16:09] VITALS: BP 131/78
[2019-06-15] MEDS: DIVALPROEX SODIUM 500 MG ER TABLET PO SCH (20:12)
[2019-06-16 06:29] LABS: GLUCOMETER DEV NAME(LOC) 3E.C; GLUCOSE,POINT OF CARE 82 MG/DL (70-110)
[2019-06-16] MEDS: MetFORMIN HCL 500 MG TABLET PO SCH ×2 (06:50→17:18)
[2019-06-16 08:32] VITALS: BP 125/78
[2019-06-16] MEDS: SODIUM CHLORIDE 1 GM TABLET PO SCH ×4 (09:45→20:10)
[2019-06-16] MEDS: PALIPERIDONE 1.5 MG ER TABLET PO PRN (09:45)
[2019-06-16] MEDS: ASPIRIN 81 MG CHEWABLE TABLET PO SCH (09:46)
[2019-06-16] MEDS: CloNIDine HCL 0.1 MG TABLET PO SCH ×2 (09:46→17:18)
[2019-06-16] MEDS: MULTIVITAMINS WITH MINERALS, THERAPEUTIC TABLET PO SCH (09:46)
[2019-06-16] MEDS: LISINOPRIL 10 MG TABLET PO SCH (09:46)
[2019-06-16] MEDS: ATORVASTATIN CALCIUM 40 MG TABLET PO SCH (09:46)
[2019-06-16] MEDS: ClonazePAM 0.5 MG TABLET PO SCH (09:46)
[2019-06-16] MEDS: LevETIRAcetam 500 MG TABLET PO SCH ×2 (09:46→17:18)
[2019-06-16 16:15] VITALS: BP 129/78
[2019-06-16] MEDS: DIVALPROEX SODIUM 500 MG ER TABLET PO SCH (20:10)
[2019-06-17] MEDS: MetFORMIN HCL 500 MG TABLET PO SCH ×2 (06:35→17:35)
[2019-06-17 06:37] LABS: GLUCOMETER DEV NAME(LOC) 3E.C; GLUCOSE,POINT OF CARE 84 MG/DL (70-110)
[2019-06-17 07:55] LABS: ANION GAP 11 mmol/L (8-16); CALCIUM, TOTAL 8.7 mg/dL (8.8-10.5); CARBON DIOXIDE 24 mmol/L (22-29); CHLORIDE 96 mmol/L (98-107); CREATININE 0.38 mg/dL (0.60-1.30); GLOMERULAR FILTR. RATE CALC > 60 mL/min (>60); GLUCOSE,RANDOM 95 mg/dL (70-110); POTASSIUM 3.8 mmol/L (3.5-5.1); SODIUM SERUM 131 mmol/L (136-145); UREA NITROGEN, BLOOD 8 mg/dL (7-18)
[2019-06-17] MEDS: ClonazePAM 0.5 MG TABLET PO SCH (08:29)
[2019-06-17] MEDS: LevETIRAcetam 500 MG TABLET PO SCH ×2 (08:31→16:43)
[2019-06-17] MEDS: SODIUM CHLORIDE 1 GM TABLET PO SCH ×4 (08:31→20:11)
[2019-06-17] MEDS: ATORVASTATIN CALCIUM 40 MG TABLET PO SCH (08:31)
[2019-06-17] MEDS: LISINOPRIL 10 MG TABLET PO SCH (08:31)
[2019-06-17] MEDS: CloNIDine HCL 0.1 MG TABLET PO SCH ×2 (08:31→16:43)
[2019-06-17] MEDS: ASPIRIN 81 MG CHEWABLE TABLET PO SCH (08:31)
[2019-06-17] MEDS: MULTIVITAMINS WITH MINERALS, THERAPEUTIC TABLET PO SCH (08:31)
[2019-06-17] MEDS: PALIPERIDONE 1.5 MG ER TABLET PO PRN (08:32)
[2019-06-17 12:55] VITALS: BP 127/74
[2019-06-17 16:11] VITALS: BP 118/79
[2019-06-17] MEDS: DIVALPROEX SODIUM 500 MG ER TABLET PO SCH (20:11)
[2019-06-18 06:46] LABS: GLUCOMETER DEV NAME(LOC) 3E.C; GLUCOSE,POINT OF CARE 95 MG/DL (70-110)
[2019-06-18] MEDS: MetFORMIN HCL 500 MG TABLET PO SCH ×2 (06:53→16:30)
[2019-06-18] MEDS: CloNIDine HCL 0.1 MG TABLET PO SCH ×3 (08:56→20:15)
[2019-06-18] MEDS: SODIUM CHLORIDE 1 GM TABLET PO SCH ×4 (08:56→20:14)
[2019-06-18] MEDS: ASPIRIN 81 MG CHEWABLE TABLET PO SCH (08:56)
[2019-06-18] MEDS: ATORVASTATIN CALCIUM 40 MG TABLET PO SCH (08:56)
[2019-06-18] MEDS: ClonazePAM 0.5 MG TABLET PO SCH (08:56)
[2019-06-18] MEDS: LISINOPRIL 10 MG TABLET PO SCH (08:56)
[2019-06-18] MEDS: MULTIVITAMINS WITH MINERALS, THERAPEUTIC TABLET PO SCH (08:56)
[2019-06-18] MEDS: LevETIRAcetam 500 MG TABLET PO SCH ×2 (08:56→16:31)
[2019-06-18 10:11] VITALS: BP 143/85
[2019-06-18 16:07] VITALS: BP 119/70
[2019-06-18] MEDS ORDERED: DIVA500T52 PO (18:54)
[2019-06-18] MEDS: DIVALPROEX SODIUM 500 MG ER TABLET PO SCH (20:15)
[2019-06-19 06:51] LABS: GLUCOMETER DEV NAME(LOC) 3E.C; GLUCOSE,POINT OF CARE 73 MG/DL (70-110)
[2019-06-19] MEDS: MetFORMIN HCL 500 MG TABLET PO SCH (06:51)
[2019-06-19 08:08] VITALS: BP_SYST 102; BP_SYST 120; BP_DIAS 62; BP_DIAS 71
[2019-06-19] MEDS: ATORVASTATIN CALCIUM 40 MG TABLET PO SCH (08:17)
[2019-06-19] MEDS: CloNIDine HCL 0.1 MG TABLET PO SCH (08:17)
[2019-06-19] MEDS: LevETIRAcetam 500 MG TABLET PO SCH (08:17)
[2019-06-19] MEDS: MULTIVITAMINS WITH MINERALS, THERAPEUTIC TABLET PO SCH (08:17)
[2019-06-19] MEDS: ASPIRIN 81 MG CHEWABLE TABLET PO SCH (08:18)
[2019-06-19] MEDS: SODIUM CHLORIDE 1 GM TABLET PO SCH ×2 (08:18→12:13)
[2019-06-19] MEDS: LISINOPRIL 10 MG TABLET PO SCH (08:18)
[2019-06-19] MEDS ORDERED: CLON0.1T83 PO (11:35)
[2019-06-19] MEDS ORDERED: NACL1 PO (11:36)
[2019-06-19] MEDS ORDERED: MULT-723 PO (11:37)
[2019-06-19] MEDS ORDERED: MULT-1239 PO (11:38)
[2019-06-19] MEDS ORDERED: LEVE500T53 PO (11:39)
[2019-06-19] MEDS ORDERED: METF-960 PO (12:47)
== END 2019-06-19 12:30 | disposition home or self-care (01) | DRG 885 ==
LOC: EMS 11:53 → 3EC 16:02 → 3EI 05-27 21:30 → 3EC 05-30 16:00
PROVIDERS: ADMIT Psychiatry & Neurology Psychiatry; ATTEND Psychiatry & Neurology Psychiatry
DX: F20.0 Paranoid schizophrenia (principal); F70 Mild intellectual disabilities; E87.1 Hypo-osmolality and hyponatremia; E11.9 Type 2 diabetes mellitus without complications; E78.00 Pure hypercholesterolemia, unspecified; E78.5 Hyperlipidemia, unspecified; G40.909 Epilepsy, unspecified, not intractable, without status epilepticus; G47.00 Insomnia, unspecified; I10 Essential (primary) hypertension; Z79.899 Other long term (current) drug therapy; Z91.19 Patient's noncompliance with other medical treatment and regimen
CPT/HCPCS: 83036; 83525; 84439; 84443; 87081; 90686; 90732; G0480; G0482

== ENCOUNTER 2019-06-23 14:41 | Inpatient (IN) | payer MEDICAID, OTHER ==
[~2019-06-23] VITALS: Ht 165.1 cm; Wt 78.4 kg
[~2019-06-23 14:41] MED LIST changes: -CARB200T6 PO; -CLON.5 PO; +CLON0.1T83 PO; -IBUP-2071 PO; +LISI-661 PO; +MULT-1239 PO; +NACL1 PO; -OLAN10TA3 PO; -OLAN7.5T2 PO; +QUET200T29 PO; -QUET300T2 PO
[2019-06-23] MEDS ORDERED: OMEP10 PO (14:58)
[2019-06-23] MEDS ORDERED: CLON.5 PO (14:58)
[2019-06-23] MEDS ORDERED: GLIP5 PO (14:58)
[2019-06-23] MEDS ORDERED: ACET-66 PO (14:58)
[2019-06-23] MEDS ORDERED: ACETAMINOPHEN 500 MG TABLET PO ONE (15:00)
[2019-06-23 15:41] LABS: GLUCOSE,POINT OF CARE 73 MG/DL (70-110)
[2019-06-23 19:38] LABS: BASOPHILS % (AUTO) 0.3 % (0.0-2.0); HEMATOCRIT 40.3 % (41-53); HEMOGLOBIN 13.4 g/dL (13.5-17.5); LYMPHOCYTES # (AUTO) 2.4 K/uL (1.0-4.8); LYMPHOCYTES % (AUTO) 40.4 % (22.0-44.0); MEAN CORPUSCULAR HEMOGLOBIN 29.8 pg (26.0-34.0); MEAN CORPUSCULAR HGB CONC 33.2 G/dL (31.0-37.0); MEAN CORPUSCULAR VOLUME 90 fL (80-100); MONOCYTES # (AUTO) 0.4 K/uL (0.1-1.0); MONOCYTES % (AUTO) 6.7 % (2.0-9.0); NEUTROPHILS % (AUTO) 51.6 % (40.0-70.0); PLATELET COUNT (AUTO) 222 K/uL (150-450); RED CELL DISTRIBUTION WIDTH 13.9 % (11.5-14.5)
[2019-06-23 19:57] LABS: ANION GAP 10 mmol/L (8-16); CARBON DIOXIDE 24 mmol/L (22-29); CHLORIDE 85 mmol/L (98-107); CREATININE 0.56 mg/dL (0.60-1.30); GLOMERULAR FILTR. RATE CALC > 60 mL/min (>60); GLUCOSE,RANDOM 104 mg/dL (70-110); POTASSIUM 3.6 mmol/L (3.5-5.1); UREA NITROGEN, BLOOD 5 mg/dL (7-18)
[2019-06-23 20:01] LABS: SODIUM SERUM 119 mmol/L (136-145)
[2019-06-23] MEDS ORDERED: 0.9% SODIUM CHLORIDE 10 ML SYRINGE IVP PRN (20:15)
[2019-06-23] MEDS ORDERED: ACETAMINOPHEN 325 MG TABLET PO PRN (20:15)
[2019-06-23] MEDS ORDERED: ONDANSETRON HCL 4 MG/2 ML VIAL IVP PRN (20:15)
[2019-06-23] MEDS ORDERED: LORazepam 2 MG/ML VIAL IVP ONE (20:30)
[2019-06-23 20:50] LABS: VALPROIC ACID 105 mcg/mL (50-100)
[2019-06-23 23:54] VITALS: BP 136/98
[2019-06-24 04:00] VITALS: BP 129/88
[2019-06-24 06:33] LABS: GLUCOMETER DEV NAME(LOC) 6N.2; GLUCOSE,POINT OF CARE 101 MG/DL (70-110)
[2019-06-24] MEDS ORDERED: ZOLPIDEM TARTRATE 5 MG TABLET PO PRN (08:15)
[2019-06-24] MEDS ORDERED: 0.9% SODIUM CHLORIDE 10 ML SYRINGE IVP PRN (08:15)
[2019-06-24] MEDS ORDERED: ONDANSETRON HCL 4 MG/2 ML VIAL IVP PRN (08:15)
[2019-06-24] MEDS ORDERED: SODIUM CHLORIDE 0.9% 1,000 ML IV SCH (08:15)
[2019-06-24 08:32] VITALS: BP 134/92
[2019-06-24] MEDS ORDERED: LISINOPRIL 10 MG TABLET PO SCH (09:00)
[2019-06-24] MEDS ORDERED: OMEPRAZOLE 10 MG CAPSULE PO SCH (09:00)
[2019-06-24] MEDS ORDERED: LevETIRAcetam 500 MG TABLET PO SCH (09:00)
[2019-06-24] MEDS: CloNIDine HCL 0.1 MG TABLET PO SCH ×3 (09:01→20:02)
[2019-06-24] MEDS: PANTOPRAZOLE SODIUM 40 MG DR TABLET PO SCH (09:01)
[2019-06-24] MEDS: LevETIRAcetam 500 MG TABLET PO SCH ×2 (09:01→20:02)
[2019-06-24] MEDS: MULTIVITAMINS WITH MINERALS, THERAPEUTIC TABLET PO SCH (09:01)
[2019-06-24] MEDS: HEPARIN SODIUM,PORCINE 5,000 UNITS/ML VIAL SQ SCH ×3 (09:01→23:59)
[2019-06-24] MEDS: ATORVASTATIN CALCIUM 40 MG TABLET PO SCH (09:01)
[2019-06-24] MEDS: DOCUSATE SODIUM 100 MG CAPSULE PO SCH ×2 (09:01→20:02)
[2019-06-24 09:49] LABS: ANION GAP 11 mmol/L (8-16); CALCIUM, TOTAL 9.7 mg/dL (8.8-10.5); CARBON DIOXIDE 24 mmol/L (22-29); CHLORIDE 91 mmol/L (98-107); CREATININE 0.52 mg/dL (0.60-1.30); GLOMERULAR FILTR. RATE CALC > 60 mL/min (>60); GLUCOSE,RANDOM 161 mg/dL (70-110); POTASSIUM 3.8 mmol/L (3.5-5.1); SODIUM SERUM 126 mmol/L (136-145); UREA NITROGEN, BLOOD 9 mg/dL (7-18)
[2019-06-24 09:51] LABS: BASOPHILS % (AUTO) 0.1 % (0.0-2.0); EOSINOPHILS % (AUTO) 0.4 % (1.0-6.0); HEMATOCRIT 40.9 % (41-53); HEMOGLOBIN 14.1 g/dL (13.5-17.5); LYMPHOCYTES # (AUTO) 1.3 K/uL (1.0-4.8); LYMPHOCYTES % (AUTO) 24.3 % (22.0-44.0); MEAN CORPUSCULAR HEMOGLOBIN 30.6 pg (26.0-34.0); MEAN CORPUSCULAR HGB CONC 34.6 G/dL (31.0-37.0); MEAN CORPUSCULAR VOLUME 89 fL (80-100); MONOCYTES # (AUTO) 0.4 K/uL (0.1-1.0); MONOCYTES % (AUTO) 6.4 % (2.0-9.0); NEUTROPHILS # (AUTO) 3.8 K/uL (1.8-7.7); NEUTROPHILS % (AUTO) 68.8 % (40.0-70.0); PLATELET COUNT (AUTO) 239 K/uL (150-450); RED BLOOD CELL COUNT(AUTO) 4.61 MIL/uL (4.50-5.90); RED CELL DISTRIBUTION WIDTH 13.8 % (11.5-14.5)
[2019-06-24] MEDS ORDERED: DEXTROSE 5%-WATER 500 ML IV ONE (10:00)
[2019-06-24] MEDS: ASPIRIN 81 MG CHEWABLE TABLET PO SCH (10:24)
[2019-06-24] MEDS: ClonazePAM 0.5 MG TABLET PO SCH (10:24)
[2019-06-24 11:36] VITALS: BP 117/49
[2019-06-24 11:39] LABS: OSMOLALITY,URINE 208 mOS/kg (50-1200)
[2019-06-24 11:40] LABS: SODIUM,URINE RANDOM 14 mmol/l (20-110)
[2019-06-24 14:01] LABS: GLUCOMETER DEV NAME(LOC) 6N.2; GLUCOSE,POINT OF CARE 101 MG/DL (70-110)
[2019-06-24 15:19] VITALS: BP 117/79
[2019-06-24] MEDS: MetFORMIN HCL 500 MG TABLET PO SCH (17:27)
[2019-06-24 19:50] VITALS: BP 135/70
[2019-06-24] MEDS: DIVALPROEX SODIUM 500 MG ER TABLET PO SCH (20:01)
[2019-06-24] MEDS: QUEtiapine FUMARATE 200 MG TABLET PO SCH (20:02)
[2019-06-24 23:46] VITALS: BP 126/78
[2019-06-25 03:45] VITALS: BP 123/68
[2019-06-25] MEDS: ACETAMINOPHEN 325 MG TABLET PO PRN ×2 (03:47→20:29)
[2019-06-25 08:20] VITALS: BP 112/79
[2019-06-25] MEDS: ClonazePAM 0.5 MG TABLET PO SCH (08:22)
[2019-06-25] MEDS: MULTIVITAMINS WITH MINERALS, THERAPEUTIC TABLET PO SCH (08:22)
[2019-06-25] MEDS: MetFORMIN HCL 500 MG TABLET PO SCH ×2 (08:22→19:09)
[2019-06-25] MEDS: CloNIDine HCL 0.1 MG TABLET PO SCH ×3 (08:22→20:15)
[2019-06-25] MEDS: LevETIRAcetam 500 MG TABLET PO SCH ×2 (08:23→20:16)
[2019-06-25] MEDS: DOCUSATE SODIUM 100 MG CAPSULE PO SCH ×2 (08:23→20:16)
[2019-06-25] MEDS: ASPIRIN 81 MG CHEWABLE TABLET PO SCH (08:23)
[2019-06-25] MEDS: ATORVASTATIN CALCIUM 40 MG TABLET PO SCH (08:23)
[2019-06-25] MEDS: PANTOPRAZOLE SODIUM 40 MG DR TABLET PO SCH (08:23)
[2019-06-25] MEDS: HEPARIN SODIUM,PORCINE 5,000 UNITS/ML VIAL SQ SCH ×2 (08:24→17:11)
[2019-06-25 10:37] LABS: BASOPHILS % (AUTO) 0.2 % (0.0-2.0); EOSINOPHILS % (AUTO) 0.6 % (1.0-6.0); HEMATOCRIT 38.2 % (41-53); HEMOGLOBIN 12.8 g/dL (13.5-17.5); LYMPHOCYTES # (AUTO) 1.4 K/uL (1.0-4.8); LYMPHOCYTES % (AUTO) 24.4 % (22.0-44.0); MEAN CORPUSCULAR HEMOGLOBIN 30.3 pg (26.0-34.0); MEAN CORPUSCULAR HGB CONC 33.7 G/dL (31.0-37.0); MEAN CORPUSCULAR VOLUME 90 fL (80-100); MONOCYTES # (AUTO) 0.4 K/uL (0.1-1.0); MONOCYTES % (AUTO) 7.4 % (2.0-9.0); NEUTROPHILS % (AUTO) 67.4 % (40.0-70.0); PLATELET COUNT (AUTO) 214 K/uL (150-450); RED BLOOD CELL COUNT(AUTO) 4.24 MIL/uL (4.50-5.90); RED CELL DISTRIBUTION WIDTH 14.1 % (11.5-14.5)
[2019-06-25 10:58] LABS: ANION GAP 13 mmol/L (8-16); CALCIUM, TOTAL 9.1 mg/dL (8.8-10.5); CARBON DIOXIDE 21 mmol/L (22-29); CHLORIDE 89 mmol/L (98-107); CREATININE 0.54 mg/dL (0.60-1.30); GLOMERULAR FILTR. RATE CALC > 60 mL/min (>60); GLUCOSE,RANDOM 188 mg/dL (70-110); POTASSIUM 3.8 mmol/L (3.5-5.1); UREA NITROGEN, BLOOD 7 mg/dL (7-18)
[2019-06-25 10:59] LABS: SODIUM SERUM 123 mmol/L (136-145)
[2019-06-25 11:12] VITALS: BP 116/66
[2019-06-25] MEDS ORDERED: MAGNESIUM OXIDE 400 MG TABLET PO ONE (11:15)
[2019-06-25] MEDS: SODIUM CHLORIDE 1 GM TABLET PO SCH ×2 (12:06→17:11)
[2019-06-25 16:00] VITALS: BP 103/63
[2019-06-25 19:30] VITALS: BP 133/79
[2019-06-25] MEDS: QUEtiapine FUMARATE 200 MG TABLET PO SCH (20:15)
[2019-06-25] MEDS: DIVALPROEX SODIUM 500 MG ER TABLET PO SCH (20:16)
[2019-06-26] VITALS (7 sets, daily range): BP systolic 104–128; BP diastolic 63–91
[2019-06-26] MEDS: SODIUM CHLORIDE 1 GM TABLET PO SCH ×5 (00:26→23:19)
[2019-06-26] MEDS: HEPARIN SODIUM,PORCINE 5,000 UNITS/ML VIAL SQ SCH ×4 (00:27→23:19)
[2019-06-26] MEDS: ACETAMINOPHEN 325 MG TABLET PO PRN ×2 (02:28→20:11)
[2019-06-26 08:11] LABS: ANION GAP 13 mmol/L (8-16); CALCIUM, TOTAL 9.5 mg/dL (8.8-10.5); CARBON DIOXIDE 23 mmol/L (22-29); CHLORIDE 93 mmol/L (98-107); CREATININE 0.41 mg/dL (0.60-1.30); GLOMERULAR FILTR. RATE CALC > 60 mL/min (>60); GLUCOSE,RANDOM 93 mg/dL (70-110); PHOSPHORUS 4.5 mg/dL (2.5-4.9); POTASSIUM 4.3 mmol/L (3.5-5.1); SODIUM SERUM 129 mmol/L (136-145); UREA NITROGEN, BLOOD 6 mg/dL (7-18)
[2019-06-26] MEDS: CloNIDine HCL 0.1 MG TABLET PO SCH ×3 (08:20→20:10)
[2019-06-26] MEDS: MULTIVITAMINS WITH MINERALS, THERAPEUTIC TABLET PO SCH (08:20)
[2019-06-26] MEDS: ClonazePAM 0.5 MG TABLET PO SCH (08:20)
[2019-06-26] MEDS: ATORVASTATIN CALCIUM 40 MG TABLET PO SCH (08:20)
[2019-06-26] MEDS: LevETIRAcetam 500 MG TABLET PO SCH ×2 (08:20→20:11)
[2019-06-26] MEDS: PANTOPRAZOLE SODIUM 40 MG DR TABLET PO SCH (08:20)
[2019-06-26] MEDS: ASPIRIN 81 MG CHEWABLE TABLET PO SCH (08:20)
[2019-06-26] MEDS: MetFORMIN HCL 500 MG TABLET PO SCH ×2 (08:20→17:14)
[2019-06-26] MEDS: DOCUSATE SODIUM 100 MG CAPSULE PO SCH ×2 (08:20→21:00)
[2019-06-26] MEDS: DIVALPROEX SODIUM 500 MG ER TABLET PO SCH (20:11)
[2019-06-26] MEDS: QUEtiapine FUMARATE 200 MG TABLET PO SCH (20:11)
[2019-06-27] MEDS: ACETAMINOPHEN 325 MG TABLET PO PRN ×2 (02:37→07:53)
[2019-06-27 02:40] VITALS: BP 130/90
[2019-06-27] MEDS: SODIUM CHLORIDE 1 GM TABLET PO SCH ×3 (06:41→17:40)
[2019-06-27 07:47] VITALS: BP 121/83
[2019-06-27] MEDS: HEPARIN SODIUM,PORCINE 5,000 UNITS/ML VIAL SQ SCH ×2 (07:52→15:40)
[2019-06-27] MEDS: DOCUSATE SODIUM 100 MG CAPSULE PO SCH ×2 (07:52→21:00)
[2019-06-27] MEDS: LevETIRAcetam 500 MG TABLET PO SCH ×2 (07:52→21:00)
[2019-06-27] MEDS: MetFORMIN HCL 500 MG TABLET PO SCH ×2 (07:52→17:40)
[2019-06-27] MEDS: ATORVASTATIN CALCIUM 40 MG TABLET PO SCH (07:52)
[2019-06-27] MEDS: ClonazePAM 0.5 MG TABLET PO SCH (07:53)
[2019-06-27] MEDS: CloNIDine HCL 0.1 MG TABLET PO SCH ×3 (07:53→21:00)
[2019-06-27] MEDS: PANTOPRAZOLE SODIUM 40 MG DR TABLET PO SCH (07:53)
[2019-06-27] MEDS: MULTIVITAMINS WITH MINERALS, THERAPEUTIC TABLET PO SCH (07:53)
[2019-06-27] MEDS: ASPIRIN 81 MG CHEWABLE TABLET PO SCH (07:53)
[2019-06-27 09:36] LABS: ANION GAP 11 mmol/L (8-16); CARBON DIOXIDE 25 mmol/L (22-29); CHLORIDE 95 mmol/L (98-107); CREATININE 0.55 mg/dL (0.60-1.30); GLOMERULAR FILTR. RATE CALC > 60 mL/min (>60); GLUCOSE,RANDOM 135 mg/dL (70-110); POTASSIUM 4.1 mmol/L (3.5-5.1); SODIUM SERUM 131 mmol/L (136-145); UREA NITROGEN, BLOOD 8 mg/dL (7-18)
[2019-06-27 11:20] VITALS: BP 124/84
[2019-06-27 15:50] VITALS: BP 122/84
[2019-06-27 18:17] LABS: PROTHROMBIN TIME 9.8 SEC (9.4-11.6)
[2019-06-27 19:12] VITALS: BP 114/76
[2019-06-27] MEDS: DIVALPROEX SODIUM 500 MG ER TABLET PO SCH (21:00)
[2019-06-27] MEDS: QUEtiapine FUMARATE 200 MG TABLET PO SCH (21:01)
[2019-06-28] MEDS: SODIUM CHLORIDE 1 GM TABLET PO SCH ×4 (00:02→17:53)
[2019-06-28 00:04] VITALS: BP 112/62
[2019-06-28 03:34] VITALS: BP 123/79
[2019-06-28 07:21] VITALS: BP 127/80
[2019-06-28 07:42] LABS: ANION GAP 11 mmol/L (8-16); CALCIUM, TOTAL 9.3 mg/dL (8.8-10.5); CARBON DIOXIDE 25 mmol/L (22-29); CHLORIDE 96 mmol/L (98-107); GLOMERULAR FILTR. RATE CALC > 60 mL/min (>60); GLUCOSE,RANDOM 93 mg/dL (70-110); PHOSPHORUS 4.3 mg/dL (2.5-4.9); POTASSIUM 3.6 mmol/L (3.5-5.1); SODIUM SERUM 132 mmol/L (136-145); UREA NITROGEN, BLOOD 8 mg/dL (7-18)
[2019-06-28] MEDS: HEPARIN SODIUM,PORCINE 5,000 UNITS/ML VIAL SQ SCH ×3 (07:55→17:01)
[2019-06-28] MEDS: ACETAMINOPHEN 325 MG TABLET PO PRN ×2 (08:54→20:02)
[2019-06-28] MEDS: ATORVASTATIN CALCIUM 40 MG TABLET PO SCH (08:55)
[2019-06-28] MEDS: CloNIDine HCL 0.1 MG TABLET PO SCH ×3 (08:55→20:00)
[2019-06-28] MEDS: ASPIRIN 81 MG CHEWABLE TABLET PO SCH (08:55)
[2019-06-28] MEDS: PANTOPRAZOLE SODIUM 40 MG DR TABLET PO SCH (08:55)
[2019-06-28] MEDS: MetFORMIN HCL 500 MG TABLET PO SCH ×2 (08:55→17:53)
[2019-06-28] MEDS: DOCUSATE SODIUM 100 MG CAPSULE PO SCH ×3 (08:55→20:05)
[2019-06-28] MEDS: MULTIVITAMINS WITH MINERALS, THERAPEUTIC TABLET PO SCH (08:55)
[2019-06-28] MEDS: ClonazePAM 0.5 MG TABLET PO SCH (08:55)
[2019-06-28] MEDS: LevETIRAcetam 500 MG TABLET PO SCH ×2 (08:55→19:59)
[2019-06-28] MEDS ORDERED: SODIUM CHLORIDE 0.9% 500 ML IV ONE (10:51)
[2019-06-28] MEDS ORDERED: LIDOCAINE 1%/EPI 1:200,000/PF 10 ML VIAL ONE (11:28)
[2019-06-28] MEDS ORDERED: VANCOMYCIN HCL 1 GM/VIAL ONE (11:28)
[2019-06-28] MEDS ORDERED: SODIUM CHLORIDE 0.9% 1,000 ML ONE (11:28)
[2019-06-28] MEDS ORDERED: BACITRACIN 50,000 UNITS/VIAL ONE (11:29)
[2019-06-28] MEDS ORDERED: -PHARMACY VACCINE NOTE- MISC ONE (11:45)
[2019-06-28] MEDS ORDERED: RINGERS SOLUTION,LACTATED 1,000 ML IV ONE ×2 (12:00→15:56)
[2019-06-28] MEDS ORDERED: HYDROmorphone 2 MG/ML SYRINGE IVP PRN ×2 (12:45)
[2019-06-28] MEDS ORDERED: FentaNYL CITRATE-PF 100 MCG/2 ML VIAL IVP PRN (12:45)
[2019-06-28] MEDS ORDERED: DiphenhydrAMINE HCL 50 MG/ML VIAL IVP PRN (12:45)
[2019-06-28] MEDS ORDERED: MAG HYDROX/AL HYDROX/SIMETH 30 ML SUSP UDCUP PO PRN (12:45)
[2019-06-28] MEDS ORDERED: MEPERIDINE-PF 25 MG/ML VIAL IVP PRN (12:45)
[2019-06-28] MEDS ORDERED: ONDANSETRON HCL 4 MG/2 ML VIAL IVP PRN (12:45)
[2019-06-28] MEDS ORDERED: BACITRACIN 28.4 GM OINTMENT TP ONE (13:14)
[2019-06-28 13:23] VITALS: BP 111/73
[2019-06-28] MEDS ORDERED: THROMBIN, BOVINE 20000 UNITS/VIAL POWDER TP ONE (14:01)
[2019-06-28] MEDS ORDERED: BACITRACIN 50,000 UNITS/VIAL IRRIG ONE (15:30)
[2019-06-28] MEDS ORDERED: ACETAMINOPHEN 1000 MG/ISO-OSM 100 ML IV ONE (15:52)
[2019-06-28] MEDS ORDERED: MEPERIDINE-PF 25 MG/ML VIAL ONE (15:52)
[2019-06-28] MEDS ORDERED: ACETAMINOPHEN 1000 MG/ISO-OSM 100 ML IV STA (15:58)
[2019-06-28] MEDS ORDERED: HYDROmorphone 2 MG/ML SYRINGE ONE (16:01)
[2019-06-28 16:48] VITALS: BP 130/78
[2019-06-28 18:47] LABS: GLUCOMETER DEV NAME(LOC) 6N.2; GLUCOSE,POINT OF CARE 153 MG/DL (70-110)
[2019-06-28] MEDS: DIVALPROEX SODIUM 500 MG ER TABLET PO SCH (19:59)
[2019-06-28] MEDS: QUEtiapine FUMARATE 200 MG TABLET PO SCH (19:59)
[2019-06-28] MEDS: OXYGEN THERAPY IH SCH (20:00)
[2019-06-28 20:14] VITALS: BP 138/77
[2019-06-29] MEDS: SODIUM CHLORIDE 1 GM TABLET PO SCH ×4 (00:23→17:45)
[2019-06-29] MEDS: HEPARIN SODIUM,PORCINE 5,000 UNITS/ML VIAL SQ SCH ×3 (00:23→17:40)
[2019-06-29 00:26] VITALS: BP 116/74
[2019-06-29] MEDS: OxyCODONE HCL/ACETAMINOPHEN 5-325 MG TABLET PO PRN ×2 (00:31→05:41)
[2019-06-29 04:55] VITALS: BP 123/74
[2019-06-29] MEDS ORDERED: NEOSTIGMINE METHYLSULFATE 1 MG/ML 10 ML VIAL IVP ONE (06:12)
[2019-06-29] MEDS ORDERED: MIDAZOLAM HCL 2 MG/2 ML VIAL IVP ONE (06:12)
[2019-06-29] MEDS ORDERED: DEXAMETHASONE SOD PHOS 4 MG/ML VIAL IVP ONE (06:12)
[2019-06-29] MEDS ORDERED: PROPOFOL 1% 20 ML VIAL IVP ONE (06:12)
[2019-06-29] MEDS ORDERED: FentaNYL CITRATE-PF 100 MCG/2 ML VIAL IVP ONE (06:12)
[2019-06-29] MEDS ORDERED: ONDANSETRON HCL 4 MG/2 ML VIAL IVP ONE (06:12)
[2019-06-29] MEDS ORDERED: ROCURONIUM BROMIDE 10 MG/ML 5 ML VIAL IVP ONE (06:12)
[2019-06-29] MEDS ORDERED: METOCLOPRAMIDE HCL 5 MG/ML 2 ML VIAL IVP ONE (06:12)
[2019-06-29] MEDS ORDERED: GLYCOPYRROLATE 0.2 MG/ML VIAL IM ONE (06:12)
[2019-06-29] MEDS ORDERED: LIDOCAINE/PF 2% 5 ML VIAL IM ONE (06:12)
[2019-06-29] MEDS ORDERED: FentaNYL CITRATE-PF 250 MCG/5 ML VIAL IVP ONE (06:12)
[2019-06-29 07:15] LABS: BASOPHILS % (AUTO) 0.1 % (0.0-2.0); EOSINOPHILS % (AUTO) 0.2 % (1.0-6.0); HEMATOCRIT 36.6 % (41-53); HEMOGLOBIN 12.2 g/dL (13.5-17.5); LYMPHOCYTES % (AUTO) 21.9 % (22.0-44.0); MEAN CORPUSCULAR HEMOGLOBIN 30.2 pg (26.0-34.0); MEAN CORPUSCULAR HGB CONC 33.4 G/dL (31.0-37.0); MEAN CORPUSCULAR VOLUME 91 fL (80-100); MONOCYTES # (AUTO) 0.8 K/uL (0.1-1.0); MONOCYTES % (AUTO) 8.7 % (2.0-9.0); NEUTROPHILS # (AUTO) 6.3 K/uL (1.8-7.7); NEUTROPHILS % (AUTO) 69.1 % (40.0-70.0); PLATELET COUNT (AUTO) 249 K/uL (150-450); RED BLOOD CELL COUNT(AUTO) 4.05 MIL/uL (4.50-5.90); RED CELL DISTRIBUTION WIDTH 13.8 % (11.5-14.5)
[2019-06-29 08:59] VITALS: BP 108/71
[2019-06-29] MEDS: DOCUSATE SODIUM 100 MG CAPSULE PO SCH ×4 (09:00→21:00)
[2019-06-29] MEDS: MULTIVITAMINS WITH MINERALS, THERAPEUTIC TABLET PO SCH (09:22)
[2019-06-29] MEDS: LevETIRAcetam 500 MG TABLET PO SCH ×2 (09:22→20:35)
[2019-06-29] MEDS: PANTOPRAZOLE SODIUM 40 MG DR TABLET PO SCH (09:22)
[2019-06-29] MEDS: ClonazePAM 0.5 MG TABLET PO SCH (09:22)
[2019-06-29] MEDS: ASPIRIN 81 MG CHEWABLE TABLET PO SCH (09:22)
[2019-06-29] MEDS: ATORVASTATIN CALCIUM 40 MG TABLET PO SCH (09:23)
[2019-06-29] MEDS: MetFORMIN HCL 500 MG TABLET PO SCH ×2 (09:23→17:40)
[2019-06-29] MEDS: CloNIDine HCL 0.1 MG TABLET PO SCH ×3 (09:23→20:34)
[2019-06-29] MEDS: OXYGEN THERAPY IH SCH (09:24)
[2019-06-29 09:27] LABS: ANION GAP 10 mmol/L (8-16); CALCIUM, TOTAL 8.6 mg/dL (8.8-10.5); CARBON DIOXIDE 26 mmol/L (22-29); CHLORIDE 93 mmol/L (98-107); CREATININE 0.62 mg/dL (0.60-1.30); GLOMERULAR FILTR. RATE CALC > 60 mL/min (>60); GLUCOSE,RANDOM 147 mg/dL (70-110); POTASSIUM 3.8 mmol/L (3.5-5.1); SODIUM SERUM 129 mmol/L (136-145); UREA NITROGEN, BLOOD 9 mg/dL (7-18)
[2019-06-29 11:40] VITALS: BP 118/68
[2019-06-29 15:37] VITALS: BP 122/79
[2019-06-29] MEDS: ACETAMINOPHEN 325 MG TABLET PO PRN (17:40)
[2019-06-29 20:30] VITALS: BP 134/81
[2019-06-29] MEDS: QUEtiapine FUMARATE 200 MG TABLET PO SCH (20:34)
[2019-06-29] MEDS: DIVALPROEX SODIUM 500 MG ER TABLET PO SCH (20:35)
[2019-06-30] VITALS (7 sets, daily range): BP systolic 107–120; BP diastolic 55–75
[2019-06-30] MEDS: SODIUM CHLORIDE 1 GM TABLET PO SCH ×5 (05:13→23:45)
[2019-06-30] MEDS: HEPARIN SODIUM,PORCINE 5,000 UNITS/ML VIAL SQ SCH ×4 (05:14→23:45)
[2019-06-30] MEDS: OxyCODONE HCL/ACETAMINOPHEN 5-325 MG TABLET PO PRN (05:15)
[2019-06-30] MEDS: OXYGEN THERAPY IH SCH ×3 (08:00→19:59)
[2019-06-30] MEDS: LevETIRAcetam 500 MG TABLET PO SCH ×2 (08:32→20:00)
[2019-06-30] MEDS: ClonazePAM 0.5 MG TABLET PO SCH (08:32)
[2019-06-30] MEDS: CloNIDine HCL 0.1 MG TABLET PO SCH ×3 (08:32→19:59)
[2019-06-30] MEDS: ATORVASTATIN CALCIUM 40 MG TABLET PO SCH (08:32)
[2019-06-30] MEDS: MetFORMIN HCL 500 MG TABLET PO SCH ×2 (08:33→17:00)
[2019-06-30] MEDS: ASPIRIN 81 MG CHEWABLE TABLET PO SCH (08:33)
[2019-06-30] MEDS: MULTIVITAMINS WITH MINERALS, THERAPEUTIC TABLET PO SCH (08:33)
[2019-06-30] MEDS: PANTOPRAZOLE SODIUM 40 MG DR TABLET PO SCH (08:33)
[2019-06-30] MEDS: DOCUSATE SODIUM 100 MG CAPSULE PO SCH ×4 (08:33→20:00)
[2019-06-30 08:54] LABS: ANION GAP 6 mmol/L (8-16); CALCIUM, TOTAL 8.4 mg/dL (8.8-10.5); CARBON DIOXIDE 29 mmol/L (22-29); CHLORIDE 97 mmol/L (98-107); CREATININE 0.45 mg/dL (0.60-1.30); GLOMERULAR FILTR. RATE CALC > 60 mL/min (>60); GLUCOSE,RANDOM 93 mg/dL (70-110); PHOSPHORUS 4.5 mg/dL (2.5-4.9); POTASSIUM 3.7 mmol/L (3.5-5.1); SODIUM SERUM 132 mmol/L (136-145); UREA NITROGEN, BLOOD 6 mg/dL (7-18)
[2019-06-30] MEDS ORDERED: MAGNESIUM SULFATE 3 GM in DEXTROSE 5%-WATER 100 ML IV ONE (10:00)
[2019-06-30] MEDS ORDERED: SODIUM CHLORIDE 0.9% 250 ML IV ONE (10:30)
[2019-06-30] MEDS ORDERED: NACL1 PO (13:30)
[2019-06-30] MEDS: QUEtiapine FUMARATE 200 MG TABLET PO SCH (20:00)
[2019-06-30] MEDS: DIVALPROEX SODIUM 500 MG ER TABLET PO SCH (20:00)
[2019-07-01 05:15] VITALS: BP 114/67
[2019-07-01] MEDS: SODIUM CHLORIDE 1 GM TABLET PO SCH ×4 (06:10→23:39)
[2019-07-01] MEDS: OXYGEN THERAPY IH SCH (07:52)
[2019-07-01 08:13] VITALS: BP 127/81
[2019-07-01] MEDS: DOCUSATE SODIUM 100 MG CAPSULE PO SCH ×4 (08:14→19:56)
[2019-07-01] MEDS: MULTIVITAMINS WITH MINERALS, THERAPEUTIC TABLET PO SCH (08:25)
[2019-07-01] MEDS: LevETIRAcetam 500 MG TABLET PO SCH ×2 (08:25→19:54)
[2019-07-01] MEDS: CloNIDine HCL 0.1 MG TABLET PO SCH ×3 (08:25→19:54)
[2019-07-01] MEDS: ClonazePAM 0.5 MG TABLET PO SCH (08:25)
[2019-07-01] MEDS: ATORVASTATIN CALCIUM 40 MG TABLET PO SCH (08:25)
[2019-07-01] MEDS: MetFORMIN HCL 500 MG TABLET PO SCH ×2 (08:26→17:00)
[2019-07-01] MEDS: PANTOPRAZOLE SODIUM 40 MG DR TABLET PO SCH (08:26)
[2019-07-01] MEDS: ASPIRIN 81 MG CHEWABLE TABLET PO SCH (08:26)
[2019-07-01] MEDS: HEPARIN SODIUM,PORCINE 5,000 UNITS/ML VIAL SQ SCH ×3 (08:26→23:40)
[2019-07-01 08:38] LABS: ANION GAP 5 mmol/L (8-16); CALCIUM, TOTAL 8.9 mg/dL (8.8-10.5); CARBON DIOXIDE 32 mmol/L (22-29); CHLORIDE 96 mmol/L (98-107); CREATININE 0.46 mg/dL (0.60-1.30); GLOMERULAR FILTR. RATE CALC > 60 mL/min (>60); GLUCOSE,RANDOM 90 mg/dL (70-110); SODIUM SERUM 133 mmol/L (136-145); UREA NITROGEN, BLOOD 7 mg/dL (7-18)
[2019-07-01] MEDS: OxyCODONE HCL/ACETAMINOPHEN 5-325 MG TABLET PO PRN (10:07)
[2019-07-01] MEDS ORDERED: MAGNESIUM OXIDE 400 MG TABLET PO ONE (11:15)
[2019-07-01 11:42] VITALS: BP 108/69
[2019-07-01 17:01] VITALS: BP 130/83
[2019-07-01 19:33] VITALS: BP 122/74
[2019-07-01] MEDS: DIVALPROEX SODIUM 500 MG ER TABLET PO SCH (19:55)
[2019-07-01] MEDS: QUEtiapine FUMARATE 200 MG TABLET PO SCH (19:55)
[2019-07-01 23:15] VITALS: BP 105/65
[2019-07-02 05:45] VITALS: BP 130/81
[2019-07-02] MEDS: SODIUM CHLORIDE 1 GM TABLET PO SCH ×4 (05:56→23:18)
[2019-07-02 07:15] VITALS: BP 123/80
[2019-07-02] MEDS: HEPARIN SODIUM,PORCINE 5,000 UNITS/ML VIAL SQ SCH ×3 (08:00→23:18)
[2019-07-02] MEDS: OXYGEN THERAPY IH SCH (08:00)
[2019-07-02 08:33] LABS: ANION GAP 7 mmol/L (8-16); CALCIUM, TOTAL 8.9 mg/dL (8.8-10.5); CARBON DIOXIDE 29 mmol/L (22-29); CHLORIDE 93 mmol/L (98-107); CREATININE 0.43 mg/dL (0.60-1.30); GLOMERULAR FILTR. RATE CALC > 60 mL/min (>60); GLUCOSE,RANDOM 93 mg/dL (70-110); SODIUM SERUM 129 mmol/L (136-145); UREA NITROGEN, BLOOD 8 mg/dL (7-18)
[2019-07-02] MEDS: ASPIRIN 81 MG CHEWABLE TABLET PO SCH (09:03)
[2019-07-02] MEDS: MetFORMIN HCL 500 MG TABLET PO SCH ×2 (09:03→17:37)
[2019-07-02] MEDS: PANTOPRAZOLE SODIUM 40 MG DR TABLET PO SCH (09:03)
[2019-07-02] MEDS: ClonazePAM 0.5 MG TABLET PO SCH (09:03)
[2019-07-02] MEDS: ATORVASTATIN CALCIUM 40 MG TABLET PO SCH (09:04)
[2019-07-02] MEDS: CloNIDine HCL 0.1 MG TABLET PO SCH ×3 (09:07→20:19)
[2019-07-02] MEDS: DOCUSATE SODIUM 100 MG CAPSULE PO SCH ×2 (09:07→20:19)
[2019-07-02] MEDS: LevETIRAcetam 500 MG TABLET PO SCH ×2 (09:11→20:20)
[2019-07-02] MEDS: MULTIVITAMINS WITH MINERALS, THERAPEUTIC TABLET PO SCH (09:11)
[2019-07-02 11:20] VITALS: BP 103/72
[2019-07-02 15:38] VITALS: BP 105/79
[2019-07-02 16:21] LABS: SODIUM,URINE RANDOM 69 mmol/l (20-110)
[2019-07-02 16:34] LABS: OSMOLALITY,URINE 271 mOS/kg (50-1200)
[2019-07-02 20:15] VITALS: BP 96/60
[2019-07-02] MEDS: DIVALPROEX SODIUM 500 MG ER TABLET PO SCH (20:20)
[2019-07-02] MEDS: QUEtiapine FUMARATE 200 MG TABLET PO SCH (20:20)
[2019-07-02 23:25] VITALS: BP 115/67
[2019-07-03 04:00] VITALS: BP 110/68
[2019-07-03] MEDS: OxyCODONE HCL/ACETAMINOPHEN 5-325 MG TABLET PO PRN (04:10)
[2019-07-03] MEDS: SODIUM CHLORIDE 1 GM TABLET PO SCH ×4 (07:17→23:28)
[2019-07-03 07:26] VITALS: BP_SYST 11; BP_SYST 110; BP_DIAS 75
[2019-07-03] MEDS: OXYGEN THERAPY IH SCH (08:00)
[2019-07-03] MEDS: MULTIVITAMINS WITH MINERALS, THERAPEUTIC TABLET PO SCH (08:57)
[2019-07-03] MEDS: PANTOPRAZOLE SODIUM 40 MG DR TABLET PO SCH (08:57)
[2019-07-03] MEDS: ASPIRIN 81 MG CHEWABLE TABLET PO SCH (08:58)
[2019-07-03] MEDS: ClonazePAM 0.5 MG TABLET PO SCH (08:58)
[2019-07-03] MEDS: ATORVASTATIN CALCIUM 40 MG TABLET PO SCH (08:58)
[2019-07-03] MEDS: LevETIRAcetam 500 MG TABLET PO SCH ×2 (08:58→19:33)
[2019-07-03] MEDS: HEPARIN SODIUM,PORCINE 5,000 UNITS/ML VIAL SQ SCH ×4 (08:59→23:28)
[2019-07-03] MEDS: DOCUSATE SODIUM 100 MG CAPSULE PO SCH ×2 (08:59→19:33)
[2019-07-03] MEDS: MetFORMIN HCL 500 MG TABLET PO SCH ×2 (08:59→17:52)
[2019-07-03] MEDS: CloNIDine HCL 0.1 MG TABLET PO SCH ×3 (09:00→19:33)
[2019-07-03 10:48] LABS: OSMOLALITY 285 mOS/kg (270-310)
[2019-07-03 10:49] LABS: ANION GAP 7 mmol/L (8-16); CALCIUM, TOTAL 9.6 mg/dL (8.8-10.5); CARBON DIOXIDE 30 mmol/L (22-29); CHLORIDE 95 mmol/L (98-107); CREATININE 0.56 mg/dL (0.60-1.30); GLOMERULAR FILTR. RATE CALC > 60 mL/min (>60); GLUCOSE,RANDOM 195 mg/dL (70-110); POTASSIUM 3.9 mmol/L (3.5-5.1); SODIUM SERUM 132 mmol/L (136-145); UREA NITROGEN, BLOOD 11 mg/dL (7-18)
[2019-07-03 11:42] VITALS: BP 98/67
[2019-07-03 15:40] VITALS: BP 124/57
[2019-07-03 19:25] VITALS: BP 121/79
[2019-07-03] MEDS: DIVALPROEX SODIUM 500 MG ER TABLET PO SCH (19:33)
[2019-07-03] MEDS: QUEtiapine FUMARATE 200 MG TABLET PO SCH (19:33)
[2019-07-03 23:38] VITALS: BP 123/73
[2019-07-04] MEDS: SODIUM CHLORIDE 1 GM TABLET PO SCH ×4 (05:27→23:29)
[2019-07-04 07:48] VITALS: BP 123/78
[2019-07-04] MEDS: OXYGEN THERAPY IH SCH (08:00)
[2019-07-04 08:03] LABS: ANION GAP 8 mmol/L (8-16); CALCIUM, TOTAL 8.7 mg/dL (8.8-10.5); CARBON DIOXIDE 28 mmol/L (22-29); CHLORIDE 97 mmol/L (98-107); CREATININE 0.48 mg/dL (0.60-1.30); GLOMERULAR FILTR. RATE CALC > 60 mL/min (>60); GLUCOSE,RANDOM 90 mg/dL (70-110); SODIUM SERUM 133 mmol/L (136-145); UREA NITROGEN, BLOOD 12 mg/dL (7-18)
[2019-07-04] MEDS: DOCUSATE SODIUM 100 MG CAPSULE PO SCH ×2 (08:31→20:09)
[2019-07-04] MEDS: ATORVASTATIN CALCIUM 40 MG TABLET PO SCH (08:31)
[2019-07-04] MEDS: CloNIDine HCL 0.1 MG TABLET PO SCH ×3 (08:31→20:09)
[2019-07-04] MEDS: PANTOPRAZOLE SODIUM 40 MG DR TABLET PO SCH (08:31)
[2019-07-04] MEDS: MULTIVITAMINS WITH MINERALS, THERAPEUTIC TABLET PO SCH (08:31)
[2019-07-04] MEDS: ASPIRIN 81 MG CHEWABLE TABLET PO SCH (08:32)
[2019-07-04] MEDS: MetFORMIN HCL 500 MG TABLET PO SCH ×2 (08:32→18:02)
[2019-07-04] MEDS: LevETIRAcetam 500 MG TABLET PO SCH ×2 (08:32→20:09)
[2019-07-04] MEDS: ClonazePAM 0.5 MG TABLET PO SCH (08:32)
[2019-07-04] MEDS: OxyCODONE HCL/ACETAMINOPHEN 5-325 MG TABLET PO PRN (08:34)
[2019-07-04] MEDS: HEPARIN SODIUM,PORCINE 5,000 UNITS/ML VIAL SQ SCH (08:35)
[2019-07-04 11:28] VITALS: BP 111/67
[2019-07-04 15:27] VITALS: BP 128/71
[2019-07-04] MEDS ORDERED: BISACODYL 10 MG RECTAL RECTAL SUPPOSITORY PR PRN (17:45)
[2019-07-04] MEDS ORDERED: SODIUM CHLORIDE 0.9% 250 ML IV ONE (17:57)
[2019-07-04 19:30] VITALS: BP 110/73
[2019-07-04] MEDS: DIVALPROEX SODIUM 500 MG ER TABLET PO SCH (20:09)
[2019-07-04] MEDS: MAGNESIUM HYDROXIDE SUSPENSION 30 ML UDCUP PO PRN (20:09)
[2019-07-04] MEDS: QUEtiapine FUMARATE 200 MG TABLET PO SCH (20:09)
[2019-07-04 20:21] LABS: BASOPHILS % (AUTO) 0.4 % (0.0-2.0); EOSINOPHILS % (AUTO) 1.3 % (1.0-6.0); HEMATOCRIT 29.4 % (41-53); HEMOGLOBIN 9.9 g/dL (13.5-17.5); LYMPHOCYTES # (AUTO) 1.9 K/uL (1.0-4.8); LYMPHOCYTES % (AUTO) 31.3 % (22.0-44.0); MEAN CORPUSCULAR HEMOGLOBIN 30.4 pg (26.0-34.0); MEAN CORPUSCULAR HGB CONC 33.7 G/dL (31.0-37.0); MEAN CORPUSCULAR VOLUME 90 fL (80-100); MONOCYTES # (AUTO) 0.5 K/uL (0.1-1.0); MONOCYTES % (AUTO) 8.5 % (2.0-9.0); NEUTROPHILS # (AUTO) 3.5 K/uL (1.8-7.7); NEUTROPHILS % (AUTO) 58.5 % (40.0-70.0); PLATELET COUNT (AUTO) 231 K/uL (150-450); RED BLOOD CELL COUNT(AUTO) 3.26 MIL/uL (4.50-5.90); RED CELL DISTRIBUTION WIDTH 14.1 % (11.5-14.5)
[2019-07-04 20:34] LABS: PROTHROMBIN TIME 9.9 SEC (9.4-11.6)
[2019-07-04 23:34] VITALS: BP 100/61
[2019-07-05 05:00] VITALS: BP 104/56
[2019-07-05] MEDS: SODIUM CHLORIDE 1 GM TABLET PO SCH ×3 (05:10→20:13)
[2019-07-05 07:25] VITALS: BP 113/69
[2019-07-05] MEDS: OXYGEN THERAPY IH SCH ×2 (08:00→20:20)
[2019-07-05] MEDS: MetFORMIN HCL 500 MG TABLET PO SCH ×2 (08:04→18:02)
[2019-07-05] MEDS: CloNIDine HCL 0.1 MG TABLET PO SCH ×3 (08:04→20:14)
[2019-07-05] MEDS: MULTIVITAMINS WITH MINERALS, THERAPEUTIC TABLET PO SCH (08:05)
[2019-07-05] MEDS: DOCUSATE SODIUM 100 MG CAPSULE PO SCH ×2 (08:05→20:13)
[2019-07-05] MEDS: LevETIRAcetam 500 MG TABLET PO SCH ×2 (08:05→20:14)
[2019-07-05] MEDS: MAGNESIUM HYDROXIDE SUSPENSION 30 ML UDCUP PO PRN (08:05)
[2019-07-05] MEDS: PANTOPRAZOLE SODIUM 40 MG DR TABLET PO SCH (08:05)
[2019-07-05] MEDS: ClonazePAM 0.5 MG TABLET PO SCH (08:05)
[2019-07-05] MEDS: ATORVASTATIN CALCIUM 40 MG TABLET PO SCH (08:05)
[2019-07-05] MEDS: ASPIRIN 81 MG CHEWABLE TABLET PO SCH (08:05)
[2019-07-05 11:16] VITALS: BP 119/74
[2019-07-05 16:24] VITALS: BP 121/63
[2019-07-05] MEDS: OxyCODONE HCL/ACETAMINOPHEN 5-325 MG TABLET PO PRN (18:02)
[2019-07-05 19:55] VITALS: BP 118/71
[2019-07-05] MEDS: QUEtiapine FUMARATE 200 MG TABLET PO SCH (20:14)
[2019-07-05] MEDS: DIVALPROEX SODIUM 500 MG ER TABLET PO SCH (20:14)
[2019-07-06 00:18] VITALS: BP 111/69
[2019-07-06 04:51] VITALS: BP 121/70
[2019-07-06 07:18] VITALS: BP 117/70
[2019-07-06 07:52] LABS: ANION GAP 8 mmol/L (8-16); CALCIUM, TOTAL 9.2 mg/dL (8.8-10.5); CARBON DIOXIDE 29 mmol/L (22-29); CHLORIDE 95 mmol/L (98-107); CREATININE 0.58 mg/dL (0.60-1.30); GLOMERULAR FILTR. RATE CALC > 60 mL/min (>60); GLUCOSE,RANDOM 92 mg/dL (70-110); POTASSIUM 3.6 mmol/L (3.5-5.1); SODIUM SERUM 132 mmol/L (136-145); UREA NITROGEN, BLOOD 13 mg/dL (7-18)
[2019-07-06] MEDS: OXYGEN THERAPY IH SCH (08:00)
[2019-07-06] MEDS: SODIUM CHLORIDE 1 GM TABLET PO SCH ×2 (08:12→15:30)
[2019-07-06] MEDS: ATORVASTATIN CALCIUM 40 MG TABLET PO SCH (08:13)
[2019-07-06] MEDS: ClonazePAM 0.5 MG TABLET PO SCH (08:13)
[2019-07-06] MEDS: ASPIRIN 81 MG CHEWABLE TABLET PO SCH (08:13)
[2019-07-06] MEDS: MULTIVITAMINS WITH MINERALS, THERAPEUTIC TABLET PO SCH (08:13)
[2019-07-06] MEDS: DOCUSATE SODIUM 100 MG CAPSULE PO SCH (08:13)
[2019-07-06] MEDS: PANTOPRAZOLE SODIUM 40 MG DR TABLET PO SCH (08:13)
[2019-07-06] MEDS: CloNIDine HCL 0.1 MG TABLET PO SCH ×2 (08:13→15:30)
[2019-07-06] MEDS: LevETIRAcetam 500 MG TABLET PO SCH (08:13)
[2019-07-06] MEDS: MetFORMIN HCL 500 MG TABLET PO SCH (08:13)
[2019-07-06] MEDS ORDERED: NACL1 PO (10:05)
[2019-07-06 11:05] VITALS: BP 129/77
[2019-07-06 15:12] VITALS: BP 114/71
== END 2019-07-06 17:48 | disposition home or self-care (01) | DRG 22 ==
LOC: EMS 14:43 → 6N 20:00
PROVIDERS: ADMIT Internal Medicine; ATTEND Internal Medicine
PROC: 00160J6 Bypass Cerebral Ventricle to Peritoneal Cavity with Synthetic Substitute, Open Approach (ICD-10-PCS; 2019-06-28)
PROC: 00P60JZ Removal of Synthetic Substitute from Cerebral Ventricle, Open Approach (ICD-10-PCS; principal; 2019-06-28 13:30)
DX: T85.01XA Breakdown (mechanical) of ventricular intracranial (communicating) shunt, initial encounter (principal); E87.1 Hypo-osmolality and hyponatremia; G91.9 Hydrocephalus, unspecified; E11.9 Type 2 diabetes mellitus without complications; I10 Essential (primary) hypertension; G40.909 Epilepsy, unspecified, not intractable, without status epilepticus; R62.50 Unspecified lack of expected normal physiological development in childhood; E78.00 Pure hypercholesterolemia, unspecified; E78.5 Hyperlipidemia, unspecified; F20.9 Schizophrenia, unspecified; M19.012 Primary osteoarthritis, left shoulder; F32.9 Major depressive disorder, single episode, unspecified; M54.9 Dorsalgia, unspecified; S30.1XXA Contusion of abdominal wall, initial encounter; Z79.82 Long term (current) use of aspirin; Z79.84 Long term (current) use of oral hypoglycemic drugs; Z79.899 Other long term (current) drug therapy; Y83.8 Other surgical procedures as the cause of abnormal reaction of the patient, or of later complication, without mention of misadventure at the time of the procedure; X58.XXXA Exposure to other specified factors, initial encounter; Y75.2 Prosthetic and other implants, materials and neurological devices associated with adverse incidents; Y92.89 Other specified places as the place of occurrence of the external cause
CPT/HCPCS: 70250; 70450; 74019; 82533; 83036; 83735; 83930; 83935; 84100; 84295; 84300; 84443; 87081; 97116; 97162; 97166; 97535; J0131; J0690; J1100; J1170; J1644; J2060; J2175; J2250; J2405; J2704; J2765; J3010; J3370; J3475; J3490; J7030; J7040; J7050; J7060; J7120

== ENCOUNTER 2019-07-10 13:25 | Inpatient (IN) | payer OTHER ==
[~2019-07-10] VITALS: Ht 165.1 cm; Wt 66.1 kg
[~2019-07-10 13:25] MED LIST changes: +CLON.5 PO; -LISI-661 PO; +OMEP10 PO
[2019-07-10 15:26] LABS: BASOPHILS % (AUTO) 0.2 % (0.0-2.0); EOSINOPHILS % (AUTO) 0.2 % (1.0-6.0); HEMATOCRIT 31.7 % (41-53); LYMPHOCYTES # (AUTO) 1.3 K/uL (1.0-4.8); LYMPHOCYTES % (AUTO) 13.6 % (22.0-44.0); MEAN CORPUSCULAR HEMOGLOBIN 31.4 pg (26.0-34.0); MEAN CORPUSCULAR HGB CONC 34.8 G/dL (31.0-37.0); MEAN CORPUSCULAR VOLUME 90 fL (80-100); MONOCYTES # (AUTO) 0.8 K/uL (0.1-1.0); MONOCYTES % (AUTO) 8.1 % (2.0-9.0); NEUTROPHILS # (AUTO) 7.6 K/uL (1.8-7.7); NEUTROPHILS % (AUTO) 77.9 % (40.0-70.0); PLATELET COUNT (AUTO) 216 K/uL (150-450); RED BLOOD CELL COUNT(AUTO) 3.51 MIL/uL (4.50-5.90); RED CELL DISTRIBUTION WIDTH 14.8 % (11.5-14.5)
[2019-07-10 15:52] LABS: LACTIC ACID 1.4 mmol/L (0.4-2.0)
[2019-07-10 15:54] LABS: B-TYPE NATRIURETIC PEPTIDE 13 pg/mL (0-100)
[2019-07-10 16:01] LABS: ALANINE AMINOTRANSFERASE 19 U/L (12-78); ALBUMIN 3.8 g/dL (3.4-5.0); ALKALINE PHOSPHATASE 83 U/L (46-116); ANION GAP 8 mmol/L (8-16); ASPARTATE AMINOTRANSFERASE 19 U/L (15-37); BILIRUBIN,TOTAL 0.5 mg/dL (0.1-1.0); CARBON DIOXIDE 26 mmol/L (22-29); CHLORIDE 86 mmol/L (98-107); CREATINE KINASE, TOTAL ONLY 93 U/L (39-308); CREATININE 0.45 mg/dL (0.60-1.30); GLOMERULAR FILTR. RATE CALC > 60 mL/min (>60); GLUCOSE,RANDOM 75 mg/dL (70-110); LIPASE 102 U/L (73-393); POTASSIUM 3.8 mmol/L (3.5-5.1); TOTAL PROTEIN, SERUM 7.4 g/dL (6.4-8.2); UREA NITROGEN, BLOOD 4 mg/dL (7-18)
[2019-07-10 16:07] LABS: SODIUM SERUM 120 mmol/L (136-145)
[2019-07-10] MEDS ORDERED: ONDANSETRON HCL 4 MG/2 ML VIAL IVP PRN ×2 (16:45→19:45)
[2019-07-10] MEDS ORDERED: ACETAMINOPHEN 325 MG TABLET PO PRN (16:45)
[2019-07-10] MEDS ORDERED: 0.9% SODIUM CHLORIDE 10 ML SYRINGE IVP PRN ×2 (16:45→19:45)
[2019-07-10 18:05] VITALS: BP 122/56
[2019-07-10] MEDS ORDERED: DEXTROSE 50%-WATER 25 GM/50 ML SYRINGE IVP PRN (19:30)
[2019-07-10] MEDS ORDERED: INSULIN LISPRO 100 UNITS/ML SQ PRN (19:30)
[2019-07-10] MEDS ORDERED: OxyCODONE HCL/ACETAMINOPHEN 5-325 MG TABLET PO PRN ×2 (19:45)
[2019-07-10 19:55] VITALS: BP 124/81
[2019-07-10] MEDS: ClonazePAM 0.5 MG TABLET PO SCH (19:59)
[2019-07-10] MEDS: ATORVASTATIN CALCIUM 40 MG TABLET PO SCH (19:59)
[2019-07-10] MEDS: ASPIRIN 81 MG CHEWABLE TABLET PO SCH (20:00)
[2019-07-10] MEDS: LevETIRAcetam 500 MG TABLET PO SCH (20:16)
[2019-07-10] MEDS: SODIUM CHLORIDE 1 GM TABLET PO SCH (20:16)
[2019-07-10] MEDS: DIVALPROEX SODIUM 500 MG ER TABLET PO SCH (20:16)
[2019-07-10] MEDS: QUEtiapine FUMARATE 200 MG TABLET PO SCH (20:16)
[2019-07-10] MEDS: CloNIDine HCL 0.1 MG TABLET PO SCH (20:17)
[2019-07-10] MEDS: OMEPRAZOLE 10 MG CAPSULE PO SCH (20:28)
[2019-07-10] MEDS: SODIUM CHLORIDE 0.9% 1,000 ML IV SCH (20:28)
[2019-07-10] MEDS: DOCUSATE SODIUM 100 MG CAPSULE PO SCH (20:28)
[2019-07-10 23:30] VITALS: BP 109/55
[2019-07-11 02:38] VITALS: BP 115/69
[2019-07-11 07:30] LABS: GLUCOMETER DEV NAME(LOC) 6S.1; GLUCOSE,POINT OF CARE 104 MG/DL (70-110)
[2019-07-11 07:30] LABS: GLUCOMETER DEV NAME(LOC) 6S.1; GLUCOSE,POINT OF CARE 110 MG/DL (70-110)
[2019-07-11 07:32] VITALS: BP 120/81
[2019-07-11 08:08] LABS: BASOPHILS % (AUTO) 0.2 % (0.0-2.0); HEMATOCRIT 45.4 % (41-53); LYMPHOCYTES # (AUTO) 1.6 K/uL (1.0-4.8); LYMPHOCYTES % (AUTO) 27.7 % (22.0-44.0); MEAN CORPUSCULAR HGB CONC 32.9 G/dL (31.0-37.0); MEAN CORPUSCULAR VOLUME 91 fL (80-100); MONOCYTES # (AUTO) 0.6 K/uL (0.1-1.0); MONOCYTES % (AUTO) 9.8 % (2.0-9.0); NEUTROPHILS # (AUTO) 3.5 K/uL (1.8-7.7); NEUTROPHILS % (AUTO) 61.3 % (40.0-70.0); PLATELET COUNT (AUTO) 194 K/uL (150-450); RED BLOOD CELL COUNT(AUTO) 4.98 MIL/uL (4.50-5.90)
[2019-07-11] MEDS: OMEPRAZOLE 10 MG CAPSULE PO SCH (08:33)
[2019-07-11] MEDS: LevETIRAcetam 500 MG TABLET PO SCH ×2 (08:33→21:03)
[2019-07-11] MEDS: ATORVASTATIN CALCIUM 40 MG TABLET PO SCH (08:33)
[2019-07-11] MEDS: SODIUM CHLORIDE 1 GM TABLET PO SCH ×2 (08:33→21:03)
[2019-07-11] MEDS: ASPIRIN 81 MG CHEWABLE TABLET PO SCH (08:33)
[2019-07-11] MEDS: ClonazePAM 0.5 MG TABLET PO SCH (08:33)
[2019-07-11] MEDS: CloNIDine HCL 0.1 MG TABLET PO SCH ×3 (08:33→21:03)
[2019-07-11] MEDS: DOCUSATE SODIUM 100 MG CAPSULE PO SCH ×2 (09:00→21:02)
[2019-07-11 09:23] LABS: ANION GAP 11 mmol/L (8-16); CALCIUM, TOTAL 9.5 mg/dL (8.8-10.5); CARBON DIOXIDE 25 mmol/L (22-29); CHLORIDE 93 mmol/L (98-107); CREATININE 0.49 mg/dL (0.60-1.30); GLOMERULAR FILTR. RATE CALC > 60 mL/min (>60); GLUCOSE,RANDOM 100 mg/dL (70-110); POTASSIUM 3.7 mmol/L (3.5-5.1); SODIUM SERUM 129 mmol/L (136-145); UREA NITROGEN, BLOOD 4 mg/dL (7-18)
[2019-07-11 11:36] VITALS: BP 121/76
[2019-07-11 15:22] VITALS: BP 123/79
[2019-07-11] MEDS: SODIUM CHLORIDE 0.9% 1,000 ML IV SCH (16:01)
[2019-07-11 18:23] LABS: GLUCOMETER DEV NAME(LOC) 6S.1; GLUCOSE,POINT OF CARE 113 MG/DL (70-110)
[2019-07-11 18:23] LABS: GLUCOMETER DEV NAME(LOC) 6S.1; GLUCOSE,POINT OF CARE 127 MG/DL (70-110)
[2019-07-11 20:00] VITALS: BP 126/84
[2019-07-11 20:01] LABS: APPEARANCE,URINE CLEAR (CLEAR); BILIRUBIN,URINE NEGATIVE (NEGATIVE); GLUCOSE, URINE (UA) NEGATIVE (NEGATIVE); KETONES,URINE NEGATIVE (NEGATIVE); LEUKOCYTE ESTERASE ,URINE NEGATIVE (NEGATIVE); NITRATE,URINE NEGATIVE (NEGATIVE); OCCULT BLOOD,URINE NEGATIVE (NEGATIVE); PH,URINE 7.5 (5.0-8.0); PROTEIN,URINE NEGATIVE (NEGATIVE)
[2019-07-11 20:09] LABS: SODIUM,URINE RANDOM 47 mmol/l (20-110)
[2019-07-11 20:12] LABS: BACTERIA,URINE None Seen /HPF (None Seen); RBC,URINE None Seen /HPF (0-2); SQUAMOUS EPITHELIAL CELL,UR Rare /LPF (None Seen); WBC,URINE None Seen /HPF (0-5)
[2019-07-11 20:23] LABS: OSMOLALITY,URINE 237 mOS/kg (50-1200)
[2019-07-11] MEDS: DIVALPROEX SODIUM 500 MG ER TABLET PO SCH (21:03)
[2019-07-11] MEDS: QUEtiapine FUMARATE 200 MG TABLET PO SCH (21:04)
[2019-07-11 23:09] VITALS: BP 111/71
[2019-07-11 23:17] LABS: GLUCOMETER DEV NAME(LOC) 6N.2; GLUCOSE,POINT OF CARE 120 MG/DL (70-110)
[2019-07-12] MEDS: SODIUM CHLORIDE 0.9% 1,000 ML IV SCH (01:45)
[2019-07-12 05:09] VITALS: BP 112/91
[2019-07-12 07:34] VITALS: BP 136/82
[2019-07-12] MEDS: LevETIRAcetam 500 MG TABLET PO SCH (08:10)
[2019-07-12] MEDS: OMEPRAZOLE 10 MG CAPSULE PO SCH (08:10)
[2019-07-12] MEDS: SODIUM CHLORIDE 1 GM TABLET PO SCH (08:10)
[2019-07-12] MEDS: ClonazePAM 0.5 MG TABLET PO SCH (08:11)
[2019-07-12] MEDS: DOCUSATE SODIUM 100 MG CAPSULE PO SCH (08:11)
[2019-07-12] MEDS: ATORVASTATIN CALCIUM 40 MG TABLET PO SCH (08:11)
[2019-07-12] MEDS: CloNIDine HCL 0.1 MG TABLET PO SCH (08:11)
[2019-07-12] MEDS: ASPIRIN 81 MG CHEWABLE TABLET PO SCH (08:11)
[2019-07-12 10:33] LABS: GLUCOMETER DEV NAME(LOC) 6S.1; GLUCOSE,POINT OF CARE 102 MG/DL (70-110)
[2019-07-12 10:56] LABS: ANION GAP 8 mmol/L (8-16); CALCIUM, TOTAL 8.6 mg/dL (8.8-10.5); CARBON DIOXIDE 28 mmol/L (22-29); CHLORIDE 100 mmol/L (98-107); CREATININE 0.56 mg/dL (0.60-1.30); GLOMERULAR FILTR. RATE CALC > 60 mL/min (>60); GLUCOSE,RANDOM 138 mg/dL (70-110); POTASSIUM 3.8 mmol/L (3.5-5.1); SODIUM SERUM 136 mmol/L (136-145); UREA NITROGEN, BLOOD 4 mg/dL (7-18)
[2019-07-12 11:27] VITALS: BP 119/85
[2019-07-13 01:01] LABS: GLUCOMETER DEV NAME(LOC) 6S.1; GLUCOSE,POINT OF CARE 122 MG/DL (70-110)
== END 2019-07-12 13:05 | disposition home or self-care (01) | DRG 426 ==
LOC: EMS 13:34 → 6N 16:49 → UNDOADMIN 16:49 → 6S 17:55 → 6N 20:06
PROVIDERS: ADMIT Internal Medicine; ATTEND Internal Medicine
DX: E87.1 Hypo-osmolality and hyponatremia (principal); G93.41 Metabolic encephalopathy; E11.9 Type 2 diabetes mellitus without complications; I10 Essential (primary) hypertension; R63.1 Polydipsia; E78.00 Pure hypercholesterolemia, unspecified; E78.5 Hyperlipidemia, unspecified; F20.9 Schizophrenia, unspecified; Z98.2 Presence of cerebrospinal fluid drainage device
CPT/HCPCS: 83605; 83930; 83935; 84300; 87081; 93005; J7030

== ENCOUNTER 2019-07-23 13:36 | Emergency (ER) | payer OTHER ==
[~2019-07-23] VITALS: Ht 165.1 cm; Wt 65.0 kg
[2019-07-23] MEDS ORDERED: OLAN5TAB30 PO (15:05)
[2019-07-23] MEDS ORDERED: LISI10TA7 PO (15:05)
[2019-07-23] MEDS ORDERED: CARB100C9 PO (15:05)
[2019-07-23] MEDS ORDERED: GLIP5TAB11 PO (15:05)
[2019-07-23] MEDS ORDERED: OLAN10TA6 PO (15:11)
[2019-07-23] MEDS ORDERED: CARB-60 PO (15:11)
[2019-07-23] MEDS ORDERED: SODIUM PHOS/SODIUM BIPHOS 133 ML ENEMA PR ONE (15:15)
[2019-07-23 17:22] VITALS: BP 132/51
== END 2019-07-23 17:31 | disposition home or self-care (01) ==
LOC: EMS 13:37
DX: K56.41 Fecal impaction (principal); F32.9 Major depressive disorder, single episode, unspecified; E11.9 Type 2 diabetes mellitus without complications; E78.00 Pure hypercholesterolemia, unspecified; I10 Essential (primary) hypertension; F20.9 Schizophrenia, unspecified; Z79.82 Long term (current) use of aspirin; Z79.84 Long term (current) use of oral hypoglycemic drugs